=== PATIENT | female | born 1960 | race Caucasian/White ===

== ENCOUNTER → 2016-05-09 | Outpatient (CLI) | payer OTHER ==
--- NOTE | 2016-05-10 10:15 | MAM ---
EXAM DESCRIPTION: MAMMO BREAST SCREENING BILATERAL CAD, images were reviewed with CAD technology, R2 computer-aided detection. CLINICAL HISTORY: [facility]. COMPARISON: 2011. FINDINGS: Routine views are obtained. Glandular tissue is heterogeneously dense and slightly nodular in contour. No dominant mass, architectural distortion or clustered microcalcification. IMPRESSION: Benign exam. BIRAD CATEGORY: 2 BENIGN RECOMMENDATIONS: FOLLOW-UP: Routine screening mammogram in one year. According to the [employer], yearly mammograms are recommended starting at age 40 and continuing as long as a woman is in good health. Any breast change noted on a breast self-exam should be reported promptly to the patient's healthcare provider. Breast MRI is recommended for women with an approximately 20-25% or greater lifetime risk of breast cancer, including women with a strong family history of breast or ovarian cancer and women who have been treated for Hodgkin's disease. Electronically signed by: Pamela Willson 05/10/2016 10:13
== END | disposition home or self-care (01) ==
LOC: MAMMO 14:50
PROVIDERS: ATTEND Family Medicine
DX: Z12.31 Encounter for screening mammogram for malignant neoplasm of breast (principal)

== ENCOUNTER → 2016-08-08 | Outpatient (CLI) | payer SELFPAY | END | disposition home or self-care (01) | LOC: YCFC.O 15:42 | PROVIDERS: ATTEND Nurse Practitioner Family | DX: I10 Essential (primary) hypertension (principal); E11.9 Type 2 diabetes mellitus without complications ==

== ENCOUNTER → 2016-09-29 | Outpatient (CLI) | payer SELFPAY ==
--- NOTE | 2016-09-30 13:40 | RAD ---
Right shoulder two views INDICATION: Shoulder pain initial encounter IMPRESSION: Bones are osteopenic. No fracture or focal destructive lesion. Mild AC joint osteoarthrosis. No dislocation. No advanced arthrosis. Electronically signed by: Amor Cee MD 09/30/2016 1:38 PM CDT
== END | disposition home or self-care (01) ==
LOC: RAD 15:56
PROVIDERS: ATTEND Nurse Practitioner Family
DX: M25.519 Pain in unspecified shoulder (principal)

== ENCOUNTER → 2016-10-21 | Outpatient (CLI) | payer SELFPAY | END | disposition home or self-care (01) | LOC: YCFC.O 07:02 | PROVIDERS: ATTEND Nurse Practitioner Family | DX: E11.9 Type 2 diabetes mellitus without complications (principal); I10 Essential (primary) hypertension ==

== ENCOUNTER 2017-01-14 17:07 | Inpatient (IN) | payer SELFPAY ==
[2017-01-14] MEDS ORDERED: SODIUM CHLORIDE 0.9% 1000ML 1,000 ML IVS ONE (17:27)
--- NOTE | 2017-01-14 17:49 | RAD ---
EXAM DESCRIPTION: Chest,2 Views CLINICAL HISTORY: 56 years, Female, fatigue sob COMPARISON: Chest x-ray dated 09/03/2013 FINDINGS: PA and lateral chest radiographs were performed. The lungs are well expanded with airspace opacity in the RIGHT lower lobe posteriorly. The lungs are otherwise clear. The costophrenic sulci are sharp. The cardiac silhouette, hilar regions, trachea, soft tissues and bony structures are unremarkable aside from mild degenerative changes. The RIGHT lower lobe airspace opacity is new since the prior study. IMPRESSION: RIGHT lower lobe pneumonia. Electronically signed by: Nathalia Grullon MD 01/14/2017 5:48 PM CDT
[2017-01-14] MEDS ORDERED: AZITHROMYCIN IV 500 MG in SODIUM CHLORIDE 0.9% 250ML 250 ML IVPB ONE (18:16)
[2017-01-14] MEDS ORDERED: cefTRIAXone SODIUM 1 GM VIAL IM ONE (18:16)
[2017-01-14] MEDS ORDERED: IPRATROPIUM/ALBUTEROL 3 ML VIAL NEB ONE (18:17)
[2017-01-14] MEDS ORDERED: MAGNESIUM SULFATE PREMIX 2GM 2 GM in PREMIX BAG 1 BAG IVPB ONE (18:18)
[2017-01-14] MEDS ORDERED: MAGNESIUM SULFATE PREMIX 2GM 50 ML IVPB ONE (18:27)
--- NOTE | 2017-01-14 18:34 | ED.PDOC ---
History of Present Illness - General Chief Complaint: GI Problem Stated Complaint: vomiting, nausea Time Seen by Provider: 01/14/17 17:08 Source: patient Exam Limitations: no limitations - History of Present Illness Initial Comments: the patient a 56-year-old female presenting to the emergency room secondary to progressive weakness actually over the last several weeks. She is reported significant weight loss over the last couple of months. She does smoke. She does not know she's had any fevers. She is getting weak and shaky but her blood sugars have been actually moderately elevated. She started to get some nausea and did have one episode of vomiting today. She's had poor oral intake over the last couple of days. No syncope. Questionable near syncope. she was seen here last year and was told to stop the thiazide diuretic. She is still on the thiazide diuretic. Timing/Duration: unsure Severity: severe Improving Factors: nothing Worsening Factors: nothing Associated Symptoms: cough, loss of appetite, malaise, nausea/vomiting, shortness of breath, weakness Allergies/Adverse Reactions: Allergies NO KNOWN ALLERGY Allergy (Verified 01/14/17 17:26) Home Medications: Ambulatory Orders Insulin Detemir [Levemir Flexpen] 30 units SUBCU DAILY 08/11/15 Fluoxetine HCl [PROzac] 20 mg PO DAILY 01/14/17 Lisinopril 20 mg PO DAILY 01/14/17 Novalog 01/14/17 OXcarbazepine [Trileptal] 600 mg PO BID 01/14/17 Trazodone HCl 50 mg PO BEDTIME 01/14/17 Review of Systems - Review of Systems Constitutional: States: malaise, weakness EENTM: States: nose congestion Respiratory: States: cough, short of breath, wheezing Cardiology: States: no symptoms reported Gastrointestinal/Abdominal: States: nausea, vomiting Genitourinary: States: no symptoms reported Musculoskeletal: States: muscle stiffness Skin: States: no symptoms reported Neurological: States: see HPI - chronic problems, weakness - eneralized Endocrine: States: unexplained weight loss Hematologic/Lymphatic: States: no symptoms reported All other Systems: No Change from Baseline Past Medical History (General) - Patient Medical History Hx Seizures: No Hx Stroke: No Hx Asthma: No Hx of COPD: No Hx Cardiac Disorders: No Hx Congestive Heart Failure: No Hx Pacemaker: No Hx Hypertension: Yes Hx Diabetes: Yes Hx MRSA: No Surgical History: Hysterectomy, other - Vaccination History Hx Tetanus, Diphtheria Vaccination: No Hx Influenza Vaccination: No Hx Pneumococcal Vaccination: Yes - Social History Hx Tobacco Use: Yes Hx Alcohol Use: No Hx Substance Use: Yes Hx Depression: Yes Hx Physical Abuse: No Hx Emotional Abuse: No - Female History Patient : No Family Medical History - Family History Mother Family History: Unknown Living Status: Unknown Physical Exam - Physical Exam General Appearance: Alert, Unkempt Eye Exam: bilateral normal Ears, Nose, Throat: hearing grossly normal, normal ENT inspection - mucous membranes are mildly dry Neck: non-tender, full range of motion Respiratory: chest non-tender, other - ild bibasilar rales are heard. She does have decreased breath sounds bilaterally. No obvious respiratory distress. 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 She does have a very significant leukocytosis associated with this. She is probably borderline septic but vital signs are holding at this point. The patient is being started on IV fluids for the sepsis and infection as well as the acute renal failure. The thiazide diuretic needs to be discontinued. She does have significant hyponatremia likely from renal dysfunction as well as pulmonary dysfunction. She is not nauseated currently so no current medications are being given. She does have a low magnesium level and this will be supplemented as well. Blood cultures are being performed. A sputum culture needs to be collected. Lactic acid is still pending at this time. Her blood sugars will require monitoring. The patient may yet need physical therapy for generalized weakness. She has had significant weight loss over the last month or so and this may be the source. She does need to be followed from a nutritional standpoint as well. I' m going to place the patient on low-flow supplemental oxygen to reduce metabolic strain. - Results/Orders Results/Orders: Laboratory Tests 01/14/17 01/14/17 01/14/17 17:40 17:40 17:40 WBC 31.3 H* RBC 4.32 Hgb 12.9 Hct 38.2 MCV 88.6 MCH 29.8 MCHC 33.7 RDW 13.4 Plt Count 220 MPV 8.9 Absolute Neuts (auto) Not Reportable Absolute Lymphs (auto) Not Reportable Absolute Monos (auto) Not Reportable Absolute Eos (auto) Not Reportable Neutrophils % Not Reportable Neutrophils % (Manual) 67.0 Lymphocytes % Not Reportable Lymphocytes % (Manual) 2.0 Monocytes % Not Reportable Monocytes % (Manual) 4.0 Eosinophils % Not Reportable Basophils % Not Reportable Band Neutrophils 27.0 Platelet Estimate Normal Normal RBC Morphology Normal rbc morph Sodium 126 L Potassium 3.9 Chloride 88 L Carbon Dioxide 25 Anion Gap 16.9 BUN 36 H Creatinine 2.00 H BUN/Creatinine Ratio 18.0 Random Glucose 279 H Hemoglobin A1c 7.2 H Serum Osmolality 271.7 L Calcium 8.8 Magnesium 1.5 L Total Bilirubin 0.6 AST 20 ALT 19 Alkaline Phosphatase 110 Creatine Kinase 33 CK-MB (CK-2) 1.5 CK-MB (CK-2) % Not Reportable Troponin I < 0.02 B-Natriuretic Peptide 145.0 H Serum Total Protein 7.3 Albumin 3.4 Globulin 3.9 H Albumin/Globulin Ratio 0.9 L Amylase 50 Lipase 19 L chest x-ray shows a significant right lower lobe consolidation consistent with pneumonia Departure - Departure Clinical Impression: Hypomagnesemia, Hyponatremia Pneumonia involving right lung Qualifiers: Pneumonia type: due to unspecified organism Lung location: lower lobe of lung Qualified Code(s): J18.1 - Lobar pneumonia, unspecified organism Acute renal failure Qualifiers: Acute renal failure type: unspecified Qualified Code(s): N17.9 - Acute kidney failure, unspecified Disposition: Admit Patient Home Medications: Ambulatory Orders Insulin Detemir [Levemir Flexpen] 30 units SUBCU DAILY 08/11/15 Fluoxetine HCl [PROzac] 20 mg PO DAILY 01/14/17 Lisinopril 20 mg PO DAILY 01/14/17 Novalog 01/14/17 OXcarbazepine [Trileptal] 600 mg PO BID 01/14/17 Trazodone HCl 50 mg PO BEDTIME 01/14/17 Decision To Admit - Decistion To Admit Decision to Admit Reason: Medical Nature Decision to Admit Date: 01/14/17 Decision to Admit Time: 18:39
[2017-01-14] MEDS ORDERED: DEXTROSE 50% 25 GM/50 ML SYG IV PRN (18:46)
[2017-01-14] MEDS ORDERED: ALBUTEROL SULFATE 2.5 MG/3 ML VIAL NEB PRN (18:46)
[2017-01-14] MEDS ORDERED: ONDANSETRON INJ 4 MG/2 ML VIAL IV PRN (18:46)
[2017-01-14] MEDS ORDERED: GLUCAGON INJ 1 MG VIAL SUBCU PRN (18:46)
[2017-01-14] MEDS ORDERED: AZITHROMYCIN IV 500 MG VIAL IVPB ONE (19:30)
[2017-01-14] MEDS ORDERED: SODIUM CHLORIDE 0.9% 250ML 250 ML ONE (19:30)
--- NOTE | 2017-01-14 19:39 | HP ---
SUPERVISING PHYSICIAN: Florencio Farley MD CHIEF COMPLAINT: Nausea and vomiting, shortness of breath. HISTORY OF PRESENT ILLNESS: Ms. Sinclair is a 56 year-old female who presented to the Emergency Department secondary to ongoing weakness for the last 4 weeks. She noted she has had some weight loss over the last couple of months, does not know exactly the total amount. She does have a lengthy history of smoking in high school, smokes approximately one-half pack a day. She noted she had been having some shortness of breath with exertion and just feeling tired and weak. In the Emergency Department laboratory studies showed she a leukocytosis with a white count of 31,300 with differential showing a left shift with a significant increase in bands. She denied any fever at home and admission to the Emergency Department running a low grade temperature of 99.7. A chest x-ray was completed and per radiology interpretation 3-view chest showed she had a right lower lobe pneumonia. She had also noted she had been having some nausea and vomiting but not significant diarrhea and attributed this mainly to a decreased appetite. She also has a history of diabetes mellitus insulin dependent which appears to be fairly well controlled as her hemoglobin A1C was 7.2. Her chemistries showed she was also hyponatremic with a sodium of 126. Lactic acid 2.1, she showed significant renal dysfunction with a BUN of 36, creatinine 2.0. Amylase and lipase were both normal. BNP was slightly elevated at 145. Cardiac enzymes were normal. Given the significant leukocytosis and findings on x-ray of right lower lobe pneumonia community acquired, the patient was started on antibiotics with Rocephin and azithromycin after blood cultures were completed. Fluid was initiated for early sepsis even though her lactic acid was normal and requested admission by Dr. Farley, Emergency Room physician for patient to be admitted to the hospital for continuation of treatment of community acquired pneumonia. The patient was admitted to the medical/surgical floor in stable condition. PAST MEDICAL HISTORY: 1. Insulin-dependent diabetes mellitus. 2. Hypertension. 3. Hyperlipidemia. 4. Osteoarthritis. 5. Depression, bipolar, schizophrenia. PAST SURGICAL HISTORY: 1. Hysterectomy. CURRENT MEDICATIONS: 1. NovoLog sliding scale. 2. Levemir 30 units subcu AM. 3. Prozac 20 mg qAM. 4. Trileptal 200 mg twice a day. 5. Trazodone 80 mg at bedtime. 6. Lisinopril 20 mg daily. ALLERGIES: NO KNOWN DRUG ALLERGIES. PRIMARY CARE PROVIDER: [facility]. MENTAL HEALTH PROVIDER: Through [facility]. FAMILY HISTORY: Positive for cancer with her grandmother having pancreatic cancer, she had multiple family members with hypertension, diabetes and 4 of a heart attack. SOCIAL HISTORY: The patient lives in [place] by herself. She has a lengthy history of tobacco abuse since high school, currently smokes a pack a day. She previously worked at [employer] but has been laid off since February of last year. She denies any illicit drug or alcohol usage. REVIEW OF SYSTEMS: CONSTITUTIONAL: Notes she has had general malaise and weakness as noted in the history of present illness with some unintentional weight loss. HEENT: Noted some nasal congestion, no sore throat, headaches or earaches. RESPIRATORY: Cough, shortness of breath with exertion with wheezing as noted in history of present illness. She also notes that in the last several years, at some point an x-ray showed she had a nodule in her right lung but this was supposedly followed up and she was told not to worry about it but again, she has had some unexplained weight loss. HEART: No reported chest pains, syncopal episodes or palpitations. ABDOMEN: Nausea and vomiting, no diarrhea. : Denies any dysuria, hematuria, or any urinary symptoms. NEUROLOGICAL: Denies any motor weakness, just generalized weakness which is a chronic problem. No syncopal episodes or mental changes. ENDOCRINE: She has insulin-dependent diabetes mellitus with pretty well controlled but has had some unexplained weight loss. PHYSICAL EXAMINATION: VITAL SIGNS: Temperature 99.7, pulse 97, blood pressure 138/81, respirations 20 at rest with saturation of 98% on room air. Admission weight 54.4 kg. GENERAL: Patient appears ill, frail and thin, appears to be dehydrated but in no acute distress. She is alert and very unkept. HEENT: Tympanic membranes were partially obscured by cerumen. Oropharynx was pink with mucous membranes being dry but no lesions. NECK: Non-tender, full range of motion. CHEST: There is notable bibasilar rales, more prominent on the right posterior aspect compared to the left with decreased breath sounds on both sides. No wheezing. CARDIOVASCULAR: Regular rate and rhythm without appreciable murmurs, rubs, or gallops. ABDOMEN: Soft, non-tender, with positive bowel sounds. EXTREMITIES: No cyanosis, clubbing, or edema. NEUROLOGIC: Cranial nerves II through XII are grossly intact. Facial features were symmetrical. Extraocular movement were within normal limits. There was no notable nystagmus. She was oriented x3 and alert. LABORATORY: CBC shows a leukocytosis of 31,300, hemoglobin 12.9, hematocrit 30.3 with platelet count of 220,000. Differential does show a left shift with increased bands at 27%. Chemistries show a hyponatremia of 126, potassium 3.9, carbon dioxide 125, anion gap normal at 16.9, BUN 36.9. Glucose 279, lactic acid 2.1, magnesium low at 1.5, calcium normal at 8.8. Liver functions showed to be within normal limits.Troponin less than 0.02. BNP only slightly elevated at 45. Amylase and lipase normal, TSH normal. Urinalysis showed 100 glucose with small amount of blood. Microcoric revealed 1 to 3 RBC, 10 to 20 WBC, 5 to 10 epithelial with 1+ bacteria. MICROBIOLOGY: Cultures pending. Gram stain on sputum shows a few epithelials with moderate RBCs with gram positive cocci, gram negative coccobacilli. Sputum cultures pending. She had a flu A and B swab by PCR which were both negative for A and B. She has 2 sets of blood cultures pending. RADIOLOGY: 2-view chest x-ray per radiology interpretation shows a right lower lobe pneumonia. ASSESSMENT: 1. Acute exacerbation of chronic obstructive pulmonary disease with a right lower lobe pneumonia, community acquired with a concern for early sepsis given the leukocytosis. 2. Significant leukocytosis likely secondary to #1. 3. Electrolyte imbalance with a moderate hyponatremia, possibly secondary to underlying pneumonia with some exacerbation by nausea and vomiting, also hypomagnesemia. 4. Community acquired pneumonia as noted on radiographic studies showing a right lower lobe pneumonia with patient having a history of significant tobacco abuse and remote history of a right lung nodule. Will need close clinical followup given the degree of weight loss that she reports and decreased appetite. 5. Nausea and vomiting probably secondary to underlying pneumonia and poor appetite. 6. Insulin-dependent diabetes mellitus fairly well controlled with a hemoglobin A1c of 7.2. 7. History of hypertension. 8. History of hyperlipidemia. 9. Significant history of tobacco abuse encouraged to stop smoking. 10. Depression, bipolar disorder with a component of schizophrenia currently followed by [facility]. 11. Renal insufficiency possibly secondary to prerenal azotemia from dehydration. PLAN: The patient will be admitted to the hospital and initiated on aggressive bronchial hygiene therapy with chest percussions, bronchial dilators with Duoneb treatments q.i.d. She will be initiated on antibiotic therapy with Rocephin and azithromycin which were initiated in the Emergency Room after blood cultures were completed. Will continue to treat aggressively and monitor patient closely. Anticipate length of stay to be 2 to [address] possible [address] of the chest to further investigate the reported lung nodules, however, she does have decreased renal function and will work on improving this , hopefully be able to use some contrast. Will start her on some IV fluids with normal saline with 20 of potassium in efforts to correct the hyponatremia and dehydration. She was given some magnesium in the Emergency Department. Will continue to monitor this closely in the labs and replace as needed. Will plan to repeat laboratory studies an x-ray in the morning and until clinically stable continue to monitor and treat appropriately. Once stable she will need followup in the outpatient setting with [facility]. [id number] [facility]
[2017-01-14] MEDS: IPRATROPIUM/ALBUTEROL 3 ML VIAL INH SCH (20:10)
[2017-01-14] MEDS: IV SET AND CAP CHANGE INJ INJ SCH (20:31)
[2017-01-14] MEDS: SODIUM CHLORIDE 0.9% (FLUSH) 10 ML SYG IV PRN (20:50)
[2017-01-14] MEDS: INSULIN LISPRO 100 UNITS/ML PEN SUBCU SCH (21:29)
[2017-01-14] MEDS: KCL 20 MEQ/NS 1,000 ML IVS PRN (21:40)
--- NOTE | 2017-01-14 21:56 | PCM.CORE ---
Physician DVT/VTE - Nurse DVT Assessment & Total Each Risk Factor Represents 3 Points: Medical PT with Hx of ND, CHF, Severe infection/sepsis Each Risk Factor Represents 1 Point: Age 41-60, Hx of smoking past year Each Risk Factor is 1 Point: Serious Lung disease (pnemonia <1month, COPD, emphysema,etc) DVT Assessment Score: 6 - 5 or more Very High Risk Treatments: Early Ambulation *, Sequential Compression Device Pharmacological: Enoxaparin 40mg SQ Daily
[2017-01-14] MEDS ORDERED: ENOXAPARIN SODIUM 40 MG/0.4 ML SYG SUBCU SCH (22:00)
[2017-01-14] MEDS: OXcarbazepine 300 MG TAB PO SCH (22:06)
[2017-01-14] MEDS: traZODone HCL 50 MG TAB PO SCH (22:06)
[2017-01-15] MEDS: KCL 20 MEQ/NS 1,000 ML IVS PRN ×2 (05:14→16:55)
--- NOTE | 2017-01-15 06:14 | RAD ---
Procedure: XR CHEST 2 VIEWS Exam Date: 01/15/2017 Ordering Provider: Johnson Zaldivar NP Clinical Indication: Pneumonia Comparison: 01/14/2017 Findings: Cardiomediastinal silhouette is stable. Focal lung consolidation: Stable right lower lobe opacities. No new infiltrates. Pleural effusion: None Pneumothorax: None Acute bony or soft tissue abnormality: None Impression: 1. Right lower lobe pneumonia. Electronically signed by: Nas Briggs MD 01/15/2017 6:13 AM CDT
[2017-01-15] MEDS: SODIUM CHLORIDE 0.9% (FLUSH) 10 ML SYG IV PRN (06:27)
[2017-01-15] MEDS: PANTOPRAZOLE SODIUM IV 40 MG VIAL IV SCH (06:27)
[2017-01-15] MEDS: INSULIN LISPRO 100 UNITS/ML PEN SUBCU SCH ×4 (07:24→21:21)
[2017-01-15] MEDS ORDERED: OXcarbazepine 300 MG TAB PO ONE (08:00)
[2017-01-15] MEDS ORDERED: SODIUM CHLORIDE 0.9% 250ML 250 ML ONE (08:08)
[2017-01-15] MEDS ORDERED: AZITHROMYCIN IV 500 MG VIAL IVPB ONE (08:08)
[2017-01-15] MEDS ORDERED: IPRATROPIUM/ALBUTEROL 3 ML VIAL NEB ONE (08:20)
[2017-01-15] MEDS: IPRATROPIUM/ALBUTEROL 3 ML VIAL INH SCH (08:50)
[2017-01-15] MEDS: AZITHROMYCIN IV 500 MG in SODIUM CHLORIDE 0.9% 250ML 250 ML IVPB SCH (08:54)
[2017-01-15] MEDS: OXcarbazepine 300 MG TAB PO SCH ×2 (08:55→21:21)
[2017-01-15] MEDS: LISINOPRIL 10 MG TAB PO SCH (08:55)
[2017-01-15] MEDS: FLUoxetine HCL 20 MG CAP PO SCH (08:56)
[2017-01-15] MEDS: INSULIN DETEMIR 100 UNITS/ML PEN SUBCU SCH ×2 (10:31→11:48)
[2017-01-15] MEDS ORDERED: SODIUM CHL 0.9% 50ML MIN-BAG+ 50 ML IVPB ONE (10:59)
[2017-01-15] MEDS ORDERED: cefTRIAXone SODIUM 1 GM VIAL ONE (11:00)
[2017-01-15] MEDS: cefTRIAXone SODIUM 1 GM in SODIUM CHL 0.9% 50ML MIN-BAG+ 50 ML IVPB SCH (11:52)
[2017-01-15] MEDS ORDERED: INSULIN LISPRO 100 UNITS/ML PEN SUBCU ONE ×2 (12:00→17:26)
[2017-01-15] MEDS: IPRATROPIUM/ALBUTEROL 3 ML VIAL NEB SCH ×3 (13:04→19:56)
[2017-01-15] MEDS: ACETAMINOPHEN 325 MG TAB PO PRN (14:38)
--- NOTE | 2017-01-15 21:01 | PN ---
DATE: 01/15/17 SUPERVISING PHYSICIAN: Florencio Farley M.D. SUBJECTIVE: The patient is resting in bed. She appears to feel a little better this morning. She remains afebrile. She has not had any more additional nausea or vomiting. She is reporting no chest pains or any abdominal pains. OBJECTIVE: VITAL SIGNS: Temperature 98.3, pulse 78, blood pressure 110/56, respirations 18, satting 96% on room air. I's and O's show a positive balance. I do not think it is very accurate because she has had voiding and unmeasured multiple voids as she has had 2746 in and only 200 out. CHEST: Lungs have good aeration except for diminished sounds on the right and notable rhonchi continues on the right posterior aspect. No wheezing. HEART: Regular rate and rhythm without any murmurs, gallops, or rubs noted. ABDOMEN: Soft, non-tender, positive bowel sounds. EXTREMITIES: No clubbing, cyanosis or edema. NEUROLOGIC : She is alert and oriented times three. LABORATORY: She continues with leukocytosis although it has improved, it is down to 23,300 with hemoglobin 10.5, hematocrit 31.6. Differential continues to show a left shift and is now decreased just 2%. Chemistries show improvement in her sodium at 132 from admission of 126, potassium is normal at 4.0, BUN 38 with creatinine showing improvement after IV fluids and is down to 1.51 compared to 2.0 at time of admission. Magnesium repeated today was 2.3, calcium 8.1. Blood sugars this morning were down in the 50s and after orange juice was up to 86, however after breakfast prior to lunch blood sugar was 358. MICROBIOLOGY: Sputum culture shows normal cecy at 24 hours. Urine culture showed no growth at 24 hours. Blood cultures remain negative at 24 hours. RADIOLOGY: Chest x-ray shows a right lower lobe pneumonia. ASSESSMENT: 1. Acute exacerbation of chronic obstructive pulmonary disease with a right lower lobe pneumonia community acquired with concerns initially for early sepsis given the degree of leukocytosis, although the patient is showing good response with parenteral antibiotics with decrease in leukocytosis. 2. Leukocytosis secondary to #1 improved with IV antibiotic therapy. 3. Electrolyte imbalance with moderate hyponatremia possibly secondary to underlying pneumonia with some exacerbation by the nausea and vomiting and hypomagnesemia showing improvement in both sodium and magnesium levels with replacement. 4. Community acquired pneumonia as noted on radiographic studies showing right lower lobe involvement with the patient having a significant history of tobacco abuse at a very young age with a remote history of reported right lung nodules. Will need close clinical followup given the degree of weight loss that she reports and her decreased appetite. 5. Nausea and vomiting likely secondary to underlying pneumonia and poor appetite showing improvement with fluids and initiation of treatment. 6. Insulin-dependent diabetes mellitus fairly well controlled with hemoglobin A1c of 7.2 on admission. 7. History of hypertension. 8. History of hypomagnesemia. 9. Significant history of tobacco abuse encouraged to stop smoking. 10. Depression and bipolar disorder with a component of schizophrenia followed by [facility]. 11. Renal insufficiency secondary to prerenal azotemia from dehydration showing improvement with IV fluids. PLAN: Will continue with the plan of care at this point with aggressive bronchial hygiene, chest percussions and antibiotic therapy to include Rocephin and Azithromycin. Will continue with IV fluids to help with dehydration and resolve the hyponatremia. Once the patient is adequately taking p.o. fluids and showing good improvement, will saline lock her. Her magnesium has been normalized with replacement. Plan to repeat laboratory studies in the morning as well as repeat x-ray until stable and telemetry improves. Will continue to monitor and treat appropriately up until discharge. Once stable, she can be discharged to outpatient treatment and be followed-up with [facility] for resolution of the radiographic studies and further evaluation of the chest films, and possible need for close followup with a CT of the chest given the patient's history of weight loss. #[id number] [facility]
[2017-01-15] MEDS: ENOXAPARIN SODIUM 40 MG/0.4 ML SYG SUBCU SCH (21:20)
[2017-01-15] MEDS: traZODone HCL 50 MG TAB PO SCH (21:21)
[2017-01-16] MEDS: KCL 20 MEQ/NS 1,000 ML IVS PRN (01:31)
[2017-01-16] MEDS: PANTOPRAZOLE SODIUM IV 40 MG VIAL IV SCH (06:25)
[2017-01-16] MEDS: SODIUM CHLORIDE 0.9% (FLUSH) 10 ML SYG IV PRN (06:25)
[2017-01-16] MEDS ORDERED: INSULIN LISPRO 100 UNITS/ML PEN SUBCU SCH (07:00)
[2017-01-16] MEDS ORDERED: SODIUM CHLORIDE 0.9% 250ML 0 ML ONE (07:55)
[2017-01-16] MEDS ORDERED: SODIUM CHL 0.9% 50ML MIN-BAG+ 50 ML IVPB ONE (07:56)
[2017-01-16] MEDS ORDERED: cefTRIAXone SODIUM 1 GM VIAL ONE (07:56)
[2017-01-16] MEDS ORDERED: AZITHROMYCIN IV 500 MG VIAL IVPB ONE ×2 (07:56→08:16)
[2017-01-16] MEDS: AZITHROMYCIN IV 500 MG in SODIUM CHLORIDE 0.9% 250ML 250 ML IVPB SCH (08:14)
[2017-01-16] MEDS: IPRATROPIUM/ALBUTEROL 3 ML VIAL NEB SCH ×4 (08:15→20:32)
[2017-01-16] MEDS ORDERED: SODIUM CHLORIDE 0.9% 250ML 250 ML ONE (08:16)
[2017-01-16] MEDS: INSULIN LISPRO 100 UNITS/ML PEN SUBCU SCH ×4 (08:18→21:23)
[2017-01-16] MEDS: INSULIN DETEMIR 100 UNITS/ML PEN SUBCU SCH (08:55)
[2017-01-16] MEDS: LISINOPRIL 10 MG TAB PO SCH (09:00)
[2017-01-16] MEDS: FLUoxetine HCL 20 MG CAP PO SCH (09:00)
[2017-01-16] MEDS: OXcarbazepine 300 MG TAB PO SCH ×2 (09:02→21:19)
[2017-01-16] MEDS: cefTRIAXone SODIUM 1 GM in SODIUM CHL 0.9% 50ML MIN-BAG+ 50 ML IVPB SCH (10:41)
--- NOTE | 2017-01-16 14:03 | PN ---
SUPERVISING PHYSICIAN: Bart Jules MD DATE: 01/16/17 SUBJECTIVE: The patient says she feels better today. She has been afebrile. She is no longer having nausea or vomiting. She does have some continued shortness of breath with exertion, but was able to actually ambulate through the halls to the front of the hospital this morning. OBJECTIVE: VITAL SIGNS: Afebrile. Temperature 98.9. Pulse 90. Blood pressure 165/75. O2 saturation 97% on room air. I&Os show positive balance of 2546 with 2746 in, 200 out. However, she has had multiple voids that have not been measured. The patient has been saline locked. Weight 54.4 kg. CHEST: She continues to have decreased breath sounds on the right compared to the left with notable rhonchi heard on the posterior aspect and right lower base. Lung sounds on the left are fairly clear. HEART: Regular rate and rhythm. ABDOMEN: Soft, nontender. Positive bowel sounds. EXTREMITIES: No cyanosis, clubbing or edema. NEUROLOGIC: Alert and oriented times three. LABORATORY: White count today is normalized to 10.4, hemoglobin 9.4, hematocrit 28.0, platelet count 64,000, differential does show a left shift. Chemistries show normal electrolytes with potassium 3.8, BUN 33, creatinine 1.3 , glucose ranging from 67 to 236, calcium 8.4. MICROBIOLOGY: Sputum culture at 48 hours showed normal cecy. Urine culture shows no growth at 48 hours. Blood cultures remain at 24 hours. RADIOLOGY: No additional radiographic studies were completed this morning. We will plan to repeat one in the morning. ASSESSMENT: 1. Acute exacerbation of chronic obstructive pulmonary disease with a right lower lobe pneumonia, community acquired, with concerns on admission of early sepsis with a degree of leukocytosis although the patient showed good response to parenteral antibiotic and has now normalized her white count. 2. Leukocytosis secondary to #1, now normalized after aggressive IV antibiotic therapy. 3. Electrolyte imbalance with a moderate hyponatremia, possibly secondary to underlying pneumonia and some exacerbation from nausea and vomiting along with hypomagnesemia which has now normalized with IV replacement. 4. Community acquired pneumonia as noted on radiographic studies showing right lower lobe involvement with the patient having a significant tobacco abuse history since a young age with remote history of reported right lung nodules. She will need close clinical followup once complete resolution of the pneumonia radiographically to ensure there are no additional suspicious findings given that she has had a degree of weight loss as well as reported decreased appetite. 5. Nausea and vomiting on admission secondary to pneumonia and poor appetite, showing improvement and initiation of treatment. 6. Insulin dependent diabetes mellitus, fairly well controlled with hemoglobin A1c of 7.2 on admission. 7. History of hypertension. 8. Hypomagnesemia, resolved with IV replacement. 9. Significant history of tobacco abuse, encouraged to stop smoking. 10. Depression and bipolar disorder with a component of schizophrenia, followed by [facility]. 11. Renal insufficiency secondary to a prerenal azotemia from dehydration, showing improvement with IV fluids. PLAN: The patient will benefit from an additional 24 hours of aggressive pulmonary hygiene and ongoing parenteral antibiotics to include Rocephin and azithromycin. She will be saline locked today as she has showing good improvement with IV therapy and encouraged p.o. fluids. We will encourage her to ambulate and increase activity as possible. We will continue with chest physiotherapy. She is again encouraged to stop smoking. We will anticipate discharging tomorrow once she is found to be clinically stable after repeat chest x-ray in the morning. She will need close clinical followup once discharged with [facility] and to followup for the previously noted lung nodules on the right with possible need for CT at some point in the near future once she has good resolution of the pneumonia. Until then, we will continue to monitor the patient closely and treat appropriately. #[id number] [facility]
[2017-01-16] MEDS ORDERED: NICOTINE PATCH 14 MG TD SCH (18:30)
[2017-01-16] MEDS: traZODone HCL 50 MG TAB PO SCH (21:19)
[2017-01-16] MEDS: SODIUM CHLORIDE 0.9% (FLUSH) 10 ML SYG IV SCH (21:19)
[2017-01-16] MEDS: ENOXAPARIN SODIUM 40 MG/0.4 ML SYG SUBCU SCH (21:20)
[2017-01-16] MEDS: ACETAMINOPHEN 325 MG TAB PO PRN (23:30)
[2017-01-17] MEDS ORDERED: PANTOPRAZOLE SODIUM TAB 40 MG PO ONE (05:18)
[2017-01-17] MEDS: PANTOPRAZOLE SODIUM TAB 40 MG PO SCH (06:32)
--- NOTE | 2017-01-17 06:49 | RAD ---
EXAM DESCRIPTION: Chest,2 Views CLINICAL HISTORY: pneumonia COMPARISON: 01/15/2017 FINDINGS: Frontal and lateral views of the chest. The cardiomediastinal silhouette has normal size and contour. Right lower lobe consolidation is not significantly changed. No pneumothorax. Leads overlie the chest. No displaced rib fractures identified. Upper abdominal soft tissues are unremarkable. Minimal degenerative change of the spine. IMPRESSION: 1. Unchanged right lower lobe pneumonia. Electronically signed by: Devan Mcgee 01/17/2017 6:47 AM CDT
[2017-01-17] MEDS: INSULIN LISPRO 100 UNITS/ML PEN SUBCU SCH ×4 (07:00→20:56)
[2017-01-17] MEDS ORDERED: AZITHROMYCIN 250 MG TAB PO ONE (08:00)
[2017-01-17] MEDS: IPRATROPIUM/ALBUTEROL 3 ML VIAL NEB SCH ×4 (08:52→20:39)
[2017-01-17] MEDS ORDERED: SODIUM CHL 0.9% 50ML MIN-BAG+ 50 ML IVPB ONE (09:00)
[2017-01-17] MEDS ORDERED: cefTRIAXone SODIUM 1 GM VIAL ONE (09:01)
[2017-01-17] MEDS: LISINOPRIL 10 MG TAB PO SCH (09:04)
[2017-01-17] MEDS: FLUoxetine HCL 20 MG CAP PO SCH (09:04)
[2017-01-17] MEDS: OXcarbazepine 300 MG TAB PO SCH ×2 (09:04→20:59)
[2017-01-17] MEDS: SODIUM CHLORIDE 0.9% (FLUSH) 10 ML SYG IV SCH ×2 (09:05→21:04)
[2017-01-17] MEDS: INSULIN DETEMIR 100 UNITS/ML PEN SUBCU SCH (09:05)
[2017-01-17] MEDS: cefTRIAXone SODIUM 1 GM in SODIUM CHL 0.9% 50ML MIN-BAG+ 50 ML IVPB SCH (11:26)
[2017-01-17] MEDS ORDERED: MAGNESIUM HYDROXIDE 30 ML UD PO ONE (12:37)
[2017-01-17] MEDS ORDERED: MAGNESIUM HYDROXIDE 30 ML UD ONE (13:57)
--- NOTE | 2017-01-17 14:32 | PN ---
DATE: 01/17/17 SUPERVISING PHYSICIAN: Bart Jules MD SUBJECTIVE: The patient is walking in the hallway. There is no notable dyspnea with ambulation in the room. She has no complaints of shortness of breath, nausea or vomiting or chest pain. She does complain of cough and feels like she just can't get the phlegm up. We discussed smoking cessation at length and the pathophysiology of pneumonia. OBJECTIVE: VITAL SIGNS: T-max 24 hours is 99.9. Pulse rate 86, blood pressure 167/74, respiratory rate 20, 02 saturation 95% on room air. Blood sugars have run between 46 and 258. Final sputum culture shows normal cecy at 48 hours. Urine culture shows no growth after 48 hours and a preliminary blood culture showed no growth after 48 hours. Her chest x-ray per radiology interpretation shows unchanged right lower lobe pneumonia. All other labs and films have been reviewed via the EMR. ASSESSMENT: 1. Acute exacerbation of chronic obstructive pulmonary disease with a right lower lobe pneumonia, community acquired, with concerns on admission for early sepsis with a degree of leukocytosis, though the patient shown good response to parenteral antibiotic and has now normalized her white count. 2. Leukocytosis secondary to #1, now normalized.. 3. Electrolyte imbalance with moderate hyponatremia, possibly secondary to underlying pneumonia and some exacerbation from nausea and vomiting along with hypomagnesemia which has now normalized. 4. Community acquired pneumonia right lower lobe pneumonia as noted on radiograph that is unchanged. The patient has a significant tobacco abuse history as well as a remote history of right lung nodules. 5. Nausea and vomiting on admission secondary to pneumonia and poor appetite, showing improvement. 6. Insulin dependent diabetes mellitus, type 1, fairly well controlled with hemoglobin A1c of 7.2. 7. History of hypertension. 8. Hypomagnesemia now resolved. 9. Significant history of tobacco abuse, encouraged to stop smoking. 10. Depression and bipolar disorder with a component of schizophrenia, followed by [facility]. 11. Renal insufficiency secondary to a prerenal azotemia from dehydration, showing improvement. PLAN: We will continue present supportive care and aggressive pulmonary hygiene. She is very concerned about her disability being rejected twice. On discharge she may need close followup with Shantal Loco, her elementary school social worker, maybe assistance with Dr. Donohue at [facility] to assist trying to get her disability. She also has quite good control of her diabetes and she bases her sliding scale insulin on her carb intake. I will contact pharmacy to see how we can adjust her sliding scale insulin based on how she takes care of it at home as she has quite a wide range of her blood sugars. I have added Mucinex to help with thinning of her secretions as well as ordered lab for in the morning and a chest x-ray. Will continue with her azithromycin and Rocephin as she is clinically responding well. We talked extensively about smoking cessation and the pathophysiology of pneumonia and have strongly encouraged her to stop smoking. We will continue to monitor her closely and followups a needed. Dr. Jules is the collaborating physician and available for consultation #[id number] [facility]
[2017-01-17] MEDS: guaiFENesin ER TAB 600 MG TAB PO SCH (20:59)
[2017-01-17] MEDS: traZODone HCL 50 MG TAB PO SCH (20:59)
[2017-01-17] MEDS: ENOXAPARIN SODIUM 40 MG/0.4 ML SYG SUBCU SCH (20:59)
[2017-01-17] MEDS ORDERED: NICOTINE PATCH 14 MG TD SCH (21:00)
[2017-01-17] MEDS: IV SET AND CAP CHANGE INJ INJ SCH (21:04)
[2017-01-18] MEDS: PANTOPRAZOLE SODIUM TAB 40 MG PO SCH (06:15)
--- NOTE | 2017-01-18 06:58 | RAD ---
EXAM DESCRIPTION: Chest,2 Views CLINICAL HISTORY: pna COMPARISON: 01/17/2017 FINDINGS: Frontal and lateral views of the chest. The cardiomediastinal silhouette has normal size and contour. Right lower lobe consolidation is not significantly changed. No pneumothorax. Leads overlie the chest. No displaced rib fractures identified. Upper abdominal soft tissues are unremarkable. Minimal degenerative change of the spine. IMPRESSION: 1. Unchanged right lower lobe pneumonia. Electronically signed by: Devan Mcgee 01/18/2017 6:56 AM CDT
[2017-01-18] MEDS: INSULIN LISPRO 100 UNITS/ML PEN SUBCU SCH ×2 (07:25→11:52)
[2017-01-18] MEDS ORDERED: SODIUM CHL 0.9% 50ML MIN-BAG+ 50 ML IVPB ONE (08:51)
[2017-01-18] MEDS ORDERED: cefTRIAXone SODIUM 1 GM VIAL ONE (08:52)
[2017-01-18] MEDS ORDERED: INSULIN DETEMIR 100 UNITS/ML PEN SUBCU ONE ×3 (08:54→11:49)
[2017-01-18] MEDS: INSULIN DETEMIR 100 UNITS/ML PEN SUBCU SCH ×2 (09:08→09:26)
[2017-01-18] MEDS: guaiFENesin ER TAB 600 MG TAB PO SCH (09:10)
[2017-01-18] MEDS: OXcarbazepine 300 MG TAB PO SCH (09:10)
[2017-01-18] MEDS: SODIUM CHLORIDE 0.9% (FLUSH) 10 ML SYG IV SCH (09:11)
[2017-01-18] MEDS: LISINOPRIL 10 MG TAB PO SCH (09:11)
[2017-01-18] MEDS: FLUoxetine HCL 20 MG CAP PO SCH (09:11)
[2017-01-18] MEDS ORDERED: BISACODYL TAB 5 MG TAB PO ONE (09:29)
[2017-01-18] MEDS ORDERED: DOXYCYCLINE HYCLATE CAP 100 MG CAP PO SCH ×2 (09:30→17:00)
[2017-01-18] MEDS: cefTRIAXone SODIUM 1 GM in SODIUM CHL 0.9% 50ML MIN-BAG+ 50 ML IVPB SCH (10:05)
[2017-01-18 10:14] VITALS: BP 176/79; TEMP 99.2
[2017-01-18] MEDS: IPRATROPIUM/ALBUTEROL 3 ML VIAL NEB SCH ×2 (12:31→12:53)
[2017-01-18 12:57] VITALS: O2SAT 98
[2017-01-18] MEDS ORDERED: PNEUMOCOCCAL VACCINE 0.5 ML INJ IM ONE (13:29)
--- NOTE | 2017-01-18 14:00 | DS ---
SUPERVISING PHYSICIAN: Bart Jules MD DISCHARGE DIAGNOSIS: 1. Acute exacerbation of chronic obstructive pulmonary disease with a right lower lobe pneumonia, community acquired, with concerns on admission for early sepsis with a degree of leukocytosis, though the patient shown good response to parenteral antibiotic and has now normalized her white count. 2. Leukocytosis secondary to #1, now normalized.. 3. Electrolyte imbalance with moderate hyponatremia, possibly secondary to underlying pneumonia and some exacerbation from nausea and vomiting along with hypomagnesemia which has now normalized. 4. Community acquired pneumonia right lower lobe pneumonia as noted on radiograph that is unchanged. The patient has a significant tobacco abuse history as well as a remote history of right lung nodules. 5. Nausea and vomiting on admission secondary to pneumonia and poor appetite, showing improvement. 6. Insulin dependent diabetes mellitus, type 1, fairly well controlled with hemoglobin A1c of 7.2. 7. History of hypertension. 8. Hypomagnesemia now resolved. 9. Significant history of tobacco abuse, encouraged to stop smoking. 10. Depression and bipolar disorder with a component of schizophrenia, followed by [facility]. 11. Renal insufficiency secondary to a prerenal azotemia from dehydration, showing improvement. HISTORY OF PRESENT ILLNESS: This is a 56-year-old female patient who presented to the Emergency Department on the date of admission due to ongoing weakness for the last 4 weeks. She had also had some weight loss over the last couple of months, but does not know exactly how much she has lost. She does have a lengthy history of smoking in high school, and she smokes approximately one-half pack of cigarettes a day. She has also had some associated shortness of breath with exertion and just feeling tired and weak. In the Emergency Department, white count was elevated at 31,300 with a left shift and a significant increase in bands. She denied any fever. In the Emergency Department, she did run a low grade temperature of 99.7. Her chest x-ray showed she had a right lower lobe pneumonia. She also had some nausea and vomiting without significant diarrhea. She has a history of diabetes mellitus , type 1, since the age of 13. Her hemoglobin A1C was 7.2. She was also hyponatremic with a sodium of 126. Lactic acid 2.1. She had some renal dysfunction with a BUN of 36, creatinine 2.0. Amylase and lipase were both within normal limits. BNP was slightly elevated at 145. Cardiac enzymes were normal. She was admitted to the hospital for right lower lobe pneumonia, community acquired as well as exacerbation of chronic obstructive pulmonary disease. HOSPITAL COURSE: The patient was started on Rocephin and azithromycin. She was given fluids initially for early sepsis and was admitted for continued treatment. She was given aggressive pulmonary hygiene as well as bronchodilators. She remained afebrile and her blood pressure did go down to 95 /58, but has since stabilized into the 160s/70s. She ambulated in the hallway without any difficulty. Her oxygen saturations on room air remained in the mid- 90s. Clinically, she responded very well to her antibiotics and bronchodilators. Her chest x-ray continued to show right lower lobe pneumonia. She was encouraged to stop smoking and extensive smoking cessation was given to her. She will need a repeat chest x-ray on discharge at her followup appointment with [facility] and Crystal Auguste. There were previously noted lung nodules and a possible need for a CT at some point in the near future once she has good resolution of the pneumonia. She completed her azithromycin in the hospital and she will be discharged home on Mucinex and doxycycline and will need continued support with bronchodilators. DISCHARGE PLAN: She has a followup appointment with Crystal Auguste on 01/26/17 at 11 AM. She is discharged in good condition. She is to resume her previous diabetic diet and increase her activity as tolerated. She is to followup with Crystal Auguste or return to the hospital for any further complications or problems. DISCHARGE MEDICATIONS: 1. Levemir. 2. Prozac. 3. Trileptal. 4. Trazodone. 5. Lisinopril. 6. NovoLog. 7. Doxycycline. 8. Mucinex. Dr. Jules is the collaborating physician and available for consultation. #[id number] [facility]
== END 2017-01-18 14:33 | disposition home or self-care (01) | DRG 871 ==
LOC: ER 17:07 → OBSVTOIN 19:38 → MS 19:38
PROVIDERS: ADMIT Nurse Practitioner Family; ATTEND Nurse Practitioner Acute Care
DX: A41.9 Sepsis, unspecified organism (principal); J18.9 Pneumonia, unspecified organism; J44.0 Chronic obstructive pulmonary disease with (acute) lower respiratory infection; E87.1 Hypo-osmolality and hyponatremia; N17.9 Acute kidney failure, unspecified; E83.42 Hypomagnesemia; F17.210 Nicotine dependence, cigarettes, uncomplicated; E11.9 Type 2 diabetes mellitus without complications; I10 Essential (primary) hypertension; E78.5 Hyperlipidemia, unspecified; M19.90 Unspecified osteoarthritis, unspecified site; F31.9 Bipolar disorder, unspecified; F20.9 Schizophrenia, unspecified; Z79.84 Long term (current) use of oral hypoglycemic drugs; Z79.899 Other long term (current) drug therapy

== ENCOUNTER → 2017-01-30 | Outpatient (CLI) | payer SELFPAY | END | disposition home or self-care (01) | LOC: LAB.O 10:15 | PROVIDERS: ATTEND Nurse Practitioner Family | DX: N17.9 Acute kidney failure, unspecified (principal) ==

== ENCOUNTER 2017-03-27 10:51 | Inpatient (IN) | payer SELFPAY ==
[2017-03-27] MEDS ORDERED: IPRATROPIUM/ALBUTEROL 3 ML VIAL NEB ONE (11:29)
--- NOTE | 2017-03-27 11:45 | ED.PDOC ---
History of Present Illness - General Chief Complaint: Respiratory Problem Stated Complaint: cough Time Seen by Provider: 03/27/17 11:28 Source: patient - History of Present Illness Comments: PT REPORTS 2 WEEK HISTORY OF NON PRODUCTIVE COUGH ASSOCIATED WITH SOB. PT ALSO REPORTS PLEURITIC CP WITH COUGH. Timing/Duration: getting worse Cough Quality/Degree: dry cough Improving Factors: immobilization, rest Worsening Factors: movement Associated Symptoms: chest pain/soreness, cough, shortness of breath, wheezing Allergies/Adverse Reactions: Allergies bandaid Adverse Reaction (Uncoded 03/27/17 11:44) Home Medications: Ambulatory Orders Insulin Detemir [Levemir Flexpen] 30 units SUBCU QAM 08/11/15 Fluoxetine HCl [Prozac] 20 mg PO QAM 01/14/17 Lisinopril 20 mg PO DAILY 01/14/17 Novalog See Protocol SUBCU ACHS 01/14/17 OXcarbazepine [Trileptal] 300 mg PO DAILY 01/14/17 Trazodone HCl 50 mg PO BEDTIME 01/14/17 Oxcarbazepine [Trileptal] 600 mg PO BEDTIME 01/15/17 Amoxicillin 875 mg PO BID #20 tab 01/18/17 Doxycycline Hyclate [Vibramycin] 100 mg PO BIDFD #14 cap 01/18/17 guaiFENesin ER TAB [Mucinex Tab] 600 mg PO BID #60 tab 01/18/17 Review of Systems - Review of Systems Constitutional: Denies: chills, fever EENTM: Denies: throat pain Respiratory: States: cough, short of breath Cardiology: States: chest pain. Denies: syncope Gastrointestinal/Abdominal: Denies: nausea, vomiting Genitourinary: Denies: dysuria, frequency Musculoskeletal: Denies: joint pain, joint swelling Skin: Denies: dryness, lesions Neurological: Denies: headache, paresthesia Endocrine: States: no symptoms reported Hematologic/Lymphatic: States: no symptoms reported Past Medical History (General) - Patient Medical History Hx Seizures: Yes - When blood sugar is very low. Hx Stroke: No Hx Asthma: No Hx of COPD: No Hx Cardiac Disorders: No Hx Congestive Heart Failure: No Hx Pacemaker: No Hx Hypertension: Yes Hx Diabetes: Yes Hx MRSA: No - Vaccination History Hx Tetanus, Diphtheria Vaccination: No Hx Influenza Vaccination: No Hx Pneumococcal Vaccination: Yes - Social History Hx Tobacco Use: Yes Hx Alcohol Use: No Hx Substance Use: No Hx Depression: Yes Hx Physical Abuse: No Hx Emotional Abuse: No - Female History Patient : No Family Medical History - Family History Mother Family History: Unknown Living Status: Still Living Hx Family Asthma: No Hx Family Congestive Heart Failure: No Hx Family Hypertension: Yes Hx Family Stroke: No Hx Cardiac Disease: No Hx Family Diabetes: No Hx Family Cancer: No Father Living Status: Hx Family Asthma: No Hx Family Congestive Heart Failure: No Hx Family Hypertension: Yes Hx Family Stroke: No Hx Cardiac Disease: Yes Hx Family Diabetes: No Hx Family Cancer: No Physical Exam - Physical Exam General Appearance: Alert, Comfortable, No apparent distress ENT Exam: hearing grossly normal Neck: normal inspection Respiratory: decreased breath sounds - ON THE RIGHT, crackles - SCATTERED Cardiovascular/Chest: regular rate, rhythm, no murmur Gastrointestinal/Abdominal: non tender, soft Extremity: normal range of motion, normal inspection Neurologic: alert, normal mood/affect, oriented x 3 Skin Exam: normal color, warm/dry Progress - Progress Progress: 03/27/17 14:02 PT RESTING COMFORTABLY, LABS AND DIAGNOSTIC STUDIES DISCUSSED. PT AGREES WITH PLAN TO ADMIT FOR FURTHER TREATMENT. - Results/Orders Results/Orders: Laboratory Tests 03/27/17 03/27/17 03/27/17 11:30 11:42 12:52 WBC 20.1 H* RBC 4.02 L Hgb 11.6 L Hct 34.9 L MCV 86.6 MCH 28.8 MCHC 33.4 RDW 14.4 Plt Count 493 H MPV 7.2 L Absolute Neuts (auto) Not Reportable Absolute Lymphs (auto) Not Reportable Absolute Monos (auto) Not Reportable Absolute Eos (auto) Not Reportable Neutrophils % Not Reportable Neutrophils % (Manual) 92.0 Lymphocytes % Not Reportable Lymphocytes % (Manual) 7.0 Monocytes % Not Reportable Monocytes % (Manual) 1.0 Eosinophils % Not Reportable Basophils % Not Reportable Platelet Estimate Increased Normal RBC Morphology Normal rbc morph pCO2 pO2 HCO3 ABG pH ABG O2 Saturation ABG Base Excess ABG Deoxyhemoglobin Oxyhemoglobin % Carboxyhemoglobin % Methemoglobin % Sat Calc Total Hemoglobin Sodium 134 L Potassium 4.2 Chloride 96 L Carbon Dioxide 27 Anion Gap 15.2 BUN 16 Creatinine 1.18 BUN/Creatinine Ratio 13.6 Random Glucose 221 H Serum Osmolality 276.2 Lactic Acid 1.2 Calcium 9.2 Total Bilirubin 0.6 AST 33 ALT 39 Alkaline Phosphatase 169 H Serum Total Protein 7.6 Albumin 3.0 L Globulin 4.6 H Albumin/Globulin Ratio 0.7 L 03/27/17 13:00 WBC RBC Hgb Hct MCV MCH MCHC RDW Plt Count MPV Absolute Neuts (auto) Absolute Lymphs (auto) Absolute Monos (auto) Absolute Eos (auto) Neutrophils % Neutrophils % (Manual) Lymphocytes % Lymphocytes % (Manual) Monocytes % Monocytes % (Manual) Eosinophils % Basophils % Platelet Estimate Normal RBC Morphology pCO2 35 pO2 53 L HCO3 23.4 ABG pH 7.440 ABG O2 Saturation 90.2 L ABG Base Excess 0.1 ABG Deoxyhemoglobin 9.5 H Oxyhemoglobin % 87.5 L Carboxyhemoglobin % 1.4 Methemoglobin % Sat 1.6 H Calc Total Hemoglobin 10.3 L Sodium Potassium Chloride Carbon Dioxide Anion Gap BUN Creatinine BUN/Creatinine Ratio Random Glucose Serum Osmolality Lactic Acid Calcium Total Bilirubin AST ALT Alkaline Phosphatase Serum Total Protein Albumin Globulin Albumin/Globulin Ratio Departure - Departure Clinical Impression: Bilateral pneumonia, Hypoxemia, Tobacco abuse, Leukocytosis Time of Disposition: 14:03 Disposition: Admit Patient Condition: Fair Departure Forms: ED Discharge - Pt. Copy, Patient Portal Self Enrollment Referrals: Crystal Auguste NP [Primary Care Provider] - 1-2 Weeks Home Medications: Ambulatory Orders Insulin Detemir [Levemir Flexpen] 30 units SUBCU QAM 08/11/15 Fluoxetine HCl [Prozac] 20 mg PO QAM 01/14/17 Lisinopril 20 mg PO DAILY 01/14/17 Novalog See Protocol SUBCU ACHS 01/14/17 OXcarbazepine [Trileptal] 300 mg PO DAILY 01/14/17 Trazodone HCl 50 mg PO BEDTIME 01/14/17 Oxcarbazepine [Trileptal] 600 mg PO BEDTIME 01/15/17 Amoxicillin 875 mg PO BID #20 tab 01/18/17 Doxycycline Hyclate [Vibramycin] 100 mg PO BIDFD #14 cap 01/18/17 guaiFENesin ER TAB [Mucinex Tab] 600 mg PO BID #60 tab 01/18/17 Decision To Admit - Decistion To Admit Decision to Admit Reason: Admit from ER Decision to Admit Date: 03/27/17 - CASE DISCUSSED WITH AQUILINO SANFORD NP WHO AGREES TO ADMIT. Decision to Admit Time: 14:04
--- NOTE | 2017-03-27 12:34 | RAD ---
EXAM DESCRIPTION: XR CHEST 2 VIEWS CLINICAL HISTORY: COUGH/SOB COMPARISON: 01/18/2017 TECHNIQUE: PA/lateral FINDINGS: Normal heart size and mediastinal contour. Bilateral lower lobe infiltrates. Moderate right and small left pleural effusion, increased since previous study. The upper lobes remain clear IMPRESSION: No acute cardiopulmonary process. Electronically signed by: Florencio Whitney MD 03/27/2017 12:32 PM [employer]
[2017-03-27] MEDS ORDERED: cefTRIAXone SODIUM 1 GM in SODIUM CHL 0.9% 50ML MIN-BAG+ 50 ML IVPB ONE (12:36)
[2017-03-27] MEDS ORDERED: AZITHROMYCIN IV 500 MG in SODIUM CHLORIDE 0.9% 250ML 250 ML IVPB ONE (12:36)
[2017-03-27] MEDS ORDERED: cefTRIAXone SODIUM 1 GM VIAL ONE (12:53)
[2017-03-27] MEDS ORDERED: SODIUM CHL 0.9% 50ML MIN-BAG+ 50 ML IVPB ONE (12:54)
[2017-03-27] MEDS ORDERED: AZITHROMYCIN IV 500 MG VIAL IVPB ONE (13:45)
[2017-03-27] MEDS ORDERED: SODIUM CHLORIDE 0.9% 250ML 250 ML ONE ×2 (13:45→13:50)
[2017-03-27] MEDS ORDERED: ONDANSETRON INJ 4 MG/2 ML VIAL IV ONE (15:41)
--- NOTE | 2017-03-27 17:14 | HP ---
SUPERVISING PHYSICIAN: Florencio Farley M.D. CHIEF COMPLAINT: Cough with shortness of breath. HISTORY OF PRESENT ILLNESS: This is a 56 year-old female with a history of heavy smoking as well as type 1 diabetes who also has a history of pneumonia in the past. She states for the past 2 weeks or so she has had a cough which has progressively gotten a little bit worse. It is also productive with holly colored sputum. She does state she has smoked less since she has been sick. She coughs so hard and severely that it makes her nearly pass out, she said. She was seen in the Emergency Room earlier today and was noted to have a white count of 20,000. Chest x-ray was done and showed bibasilar pneumonia. ABG was done also and her PO2 was pretty low on that as well. She was not retaining any CO2 at that time. They gave her Rocephin and azithromycin in the Emergency Room along with nebulizer treatments. She had minimal improvement but given her leukocytosis and bilateral infiltrates as well as hypoxemia, she was referred for admission. At the time of examination the patient is alert. She has mild dyspnea at rest. PAST MEDICAL HISTORY: 1. Type 1 diabetes mellitus. 2. Hypertension. 3. Hyperlipidemia. 4. Osteoarthritis. 5. Depression with bipolar. 6. What sounds like probable diabetic retinopathy as well as diabetic gastroparesis, although these 2 are undiagnosed. PAST SURGICAL HISTORY: 1. sections times 2 and which one of those she actually had an appendectomy. 2. Hysterectomy with unilateral salpingo-oophorectomy. CURRENT MEDICATIONS: 1. NovoLog sliding scale. 2. Levemir 30 units subcutaneously in the morning. 3. Prozac 20 mg p.o. every AM. 4. Lisinopril 20 mg p.o. daily. 5. Trileptal 300 mg in the morning. 6. Trileptal 300 mg around 3:00 in the afternoon. 7. Trileptal 600 mg at bedtime. 8. Trazodone 50 mg at bedtime. 9. Guaifenesin ER 600 mg at bedtime. ALLERGIES: NO KNOWN DRUG ALLERGIES. FAMILY HISTORY: Diabetes, pancreatic cancer, heart disease and Alzheimer's. SOCIAL HISTORY: The patient smokes 3/4 of a pack a day and has since 15 years of age. No significant alcohol or illicit drug use. REVIEW OF SYSTEMS: CONSTITUTIONAL: No fever or chills. No recent weight loss or weight gain. HEENT: No headaches vision changes, ear pain, nasal congestion or throat pain. CARDIOVASCULAR: No chest pain or palpitations, but she has had some peripheral edema. RESPIRATORY: Positive for cough. No hemoptysis. No pleuritic chest pain. The cough is productive. Positive for dyspnea. GASTROINTESTINAL: No nausea or vomiting. She has had issues with constipation and cramping. GENITOURINARY: No dysuria, frequency or flank pain. MUSCULOSKELETAL: No joint pain, joint swelling or muscle cramps. ENDOCRINE: No polydipsia, polyuria or polyphagia. No heat or cold intolerance. HEMATOLOGIC: No easy bruising or transfusion reactions. INTEGUMENT: No rashes, lesions or wounds. PHYSICAL EXAMINATION: VITAL SIGNS: Blood pressure 131/73, heart rate 92, respiratory rate 22, temperature 97.8, oxygen saturation 96% on 2 liters via nasal cannula. GENERAL: Ms. Sinclair is a 56 year-old female in mild respiratory distress at rest at this time. HEENT: Head is normocephalic and atraumatic. EYES: Pupils are equal and reactive. NOSE: No drainage. THROAT: With moist buccal mucosa. NECK: Supple. Midline trachea. No jugular venous distention. CHEST: Symmetrical with equal rise and fall of the chest with inspiration and expiration. Lung sounds are bibasilar, diminishing and mild rhonchi on the right greater than left. CARDIOVASCULAR: The patient has a regular rate and rhythm. Normal S1 and S2. ABDOMEN: Soft, positive bowel sounds. No tenderness to palpation. EXTREMITIES: Lower extremities with some trace ankle edema bilaterally. Peripheral pulses are adequate. Capillary refill less than 2 seconds. NEUROLOGIC: The patient is alert and oriented. LABORATORY: Sodium 134, potassium 4.2, chloride 96, CO2 27, BUN 16, creatinine 1.18, glucose 221, calcium 9.2. Lactic acid is normal at 1.2. CBC is significant with white blood cell count of 20,000. Arterial blood gas showed pH of 7.44, PCO2 of 35, PO2 of 53, bicarb 23.4 and base excess of 0.1. RADIOLOGY: Chest x-ray is consistent with bibasilar pneumonia. ASSESSMENT: 1. Bibasilar pneumonia. 2. Hypoxemia. 3. Probable component of acute on chronic bronchitis. 4. Uncontrolled diabetes mellitus. 5. History of bipolar disorder. 6. Likely gastroparesis. PLAN: 1. I have placed the patient on Levaquin 750 mg IV daily for now. Cultures have been drawn for her blood as well as sputum cultures. Will monitor these and adjust antibiotics accordingly. 2. Hypoxemia related to #1. I would continue supplemental oxygen and continue to wean this as tolerated. 3. Nebulizer therapy have been started as well. At this time, she has no active wheezing, therefore I will not initiate any corticosteroids. Additionally , corticosteroids would probably throw her blood sugars even higher at this time. 4. I have restarted her home medications, including insulin with Levemir and sliding scale. 5. Will check a hemoglobin A1c, TSH along with other followup labs tomorrow. Chest x-ray has been ordered as well. 6. DVT prophylaxis was ordered as well. Dr. Farley is the collaborating physician. #[id number] [facility]
[2017-03-27] MEDS ORDERED: ACETAMINOPHEN 325 MG TAB PO PRN (17:50)
[2017-03-27] MEDS ORDERED: GLUCAGON INJ 1 MG VIAL SUBCU PRN (17:50)
[2017-03-27] MEDS ORDERED: DEXTROSE 50% 25 GM/50 ML SYG IV PRN (17:50)
[2017-03-27] MEDS ORDERED: levoFLOXacin 750MG IV 750 MG in PREMIX BAG 1 BAG IVPB SCH (18:00)
[2017-03-27] MEDS: IV SET AND CAP CHANGE INJ INJ SCH (18:33)
[2017-03-27] MEDS ORDERED: ENOXAPARIN SODIUM 40 MG/0.4 ML SYG SUBCU SCH (19:00)
[2017-03-27] MEDS ORDERED: OXcarbazepine 300 MG TAB PO ONE (19:41)
[2017-03-27] MEDS: IPRATROPIUM/ALBUTEROL 3 ML VIAL INH SCH (20:05)
[2017-03-27] MEDS: traZODone HCL 50 MG TAB PO SCH (20:39)
[2017-03-27] MEDS: guaiFENesin ER TAB 600 MG TAB PO SCH (20:39)
[2017-03-27] MEDS: SODIUM CHLORIDE 0.9% (FLUSH) 10 ML SYG IV PRN (20:42)
[2017-03-27] MEDS ORDERED: OXCARBAZEPINE 600 MG PO SCH (21:00)
[2017-03-27] MEDS: INSULIN LISPRO 100 UNITS/ML PEN SUBCU SCH (21:16)
--- NOTE | 2017-03-28 07:28 | RAD ---
EXAM DESCRIPTION: Chest,2 Views CLINICAL HISTORY: Pneumonia cough, shortness of breath. Follow-up COMPARISON: March 27, 2017 FINDINGS: Two-view chest x-ray shows cardiomediastinal silhouette and pulmonary vasculature to be within normal limits. Lungs are normally aerated. Bilateral interstitial alveolar airspace densities are seen in the lower lobes with slightly increased interstitial densities in the left upper lobe. There remains blunting of the costophrenic angles right greater than left similar to previous. Mild disc degenerative changes of the spine are seen. IMPRESSION: Persistent right current left small pleural effusions are seen with continued bibasilar atelectasis versus pneumonia versus aspiration. Increasing infiltrate or atelectasis in the left upper lobe is seen. Electronically signed by: Blu Hoyos MD 03/28/2017 7:27 AM [facility]
[2017-03-28] MEDS: INSULIN LISPRO 100 UNITS/ML PEN SUBCU SCH ×4 (07:30→21:07)
[2017-03-28] MEDS: IPRATROPIUM/ALBUTEROL 3 ML VIAL INH SCH ×4 (07:39→20:06)
[2017-03-28] MEDS ORDERED: INSULIN DETEMIR 100 UNITS/ML PEN SUBCU ONE (07:47)
[2017-03-28] MEDS ORDERED: LISINOPRIL 10 MG TAB ONE (07:47)
[2017-03-28] MEDS: LISINOPRIL 10 MG TAB PO SCH (08:37)
[2017-03-28] MEDS: OXcarbazepine 300 MG TAB PO SCH ×3 (08:37→21:05)
[2017-03-28] MEDS: FLUoxetine HCL 20 MG CAP PO SCH (08:37)
[2017-03-28] MEDS: INSULIN DETEMIR 100 UNITS/ML PEN SUBCU SCH (08:38)
[2017-03-28] MEDS ORDERED: OXcarbazepine 300 MG TAB PO SCH (12:00)
--- NOTE | 2017-03-28 14:32 | PN ---
SUPERVISING PHYSICIAN: Florencio Farley MD DATE: 03/28/17 SUBJECTIVE: The patient feels a little bit better. She is moving around, coughing up quite a bit of sputum. Her shortness of breath is a little bit better. No complaints of pain at this time. OBJECTIVE: VITAL SIGNS: Blood pressure 130/70. Heart rate 95. Respiratory rate 22. Temperature 97.9. Oxygen saturation 95%. GENERAL: Ms. Sinclair is a 56-year-old female in no severe distress at this time. HEENT: Normocephalic, atraumatic. Pupils are equal and reactive. No nasal drainage. Moist buccal mucosa. NECK: Supple. Midline trachea. No jugular venous distention. CHEST: Symmetrical with equal rise and fall of the chest with inspiration and expiration. Lungs sounds are a little bit diminished in the bases and she also has some coarse sounds int he bases. CARDIOVASCULAR: Regular rate and rhythm. Normal S1, S2. ABDOMEN: Soft. Positive bowel sounds. GENITOURINARY: Deferred. LOWER EXTREMITIES: Some ankle edema bilaterally. Pulses are 2+. Capillary refill is less than 2 seconds. NEUROLOGIC: The patient is alert. LABORATORY: Labs have been reviewed. So far, the cultures are negative. White blood cell count is improved to 17.6, hemoglobin 9.5, hematocrit 28.9, platelet count 397. Chemistry shows sodium 132, potassium 4.4, chloride 98, CO2 25, BUN 18, creatinine 1.38, glucose 98, calcium 8.3. TSH 2.59. Hemoglobin A1c 7.7 Chest x-ray still with bibasilar pneumonia and possible development of left upper lobe pneumonia seen as well. ASSESSMENT: 1. Bibasilar pneumonia with possible development of left upper lobe pneumonia. 2. Hypoxemia, appears to bee improved. 3. Acute on chronic bronchitis. 4. Uncontrolled diabetes mellitus as evidenced by hemoglobin A1c of 7.7. 5. Mild acute kidney injury. 6. History of bipolar disorder. 7. Likely gastroparesis. PLAN: 1. With improvement in the white blood cell count as well as negative blood cultures and sputum cultures so far, we will continue the Levaquin IV. However, given the fact she has been having mild increase in her creatinine, this is being renally dose adjusted by pharmacy. 2. Hypoxemia seems to be a little bit better. We will continue to monitor this. 3. Nebulizer therapies will be continued as well. She is tolerating bronchial hygiene via respiratory therapy. 4. Blood sugar on her chemistry this morning was controlled at 98. We will continue to monitor this. 5. I have started her on some IV fluids given the mild increase in the creatinine. We will recheck labs tomorrow to ensure there is no further increase in the creatinine. 6. Continue DVT and ulcer prophylaxis. #[id number] [facility]
[2017-03-28] MEDS ORDERED: levoFLOXacin 250MG IV 50 ML IVPB ONE (17:42)
[2017-03-28] MEDS ORDERED: levoFLOXacin 250MG IV 250 MG in PREMIX BAG 1 BAG IVPB SCH (18:00)
[2017-03-28] MEDS: SODIUM CHLORIDE 0.9% 1000ML 1,000 ML IVS PRN (18:47)
[2017-03-28] MEDS ORDERED: ENOXAPARIN SODIUM 40 MG/0.4 ML SYG SUBCU ONE (19:52)
[2017-03-28] MEDS: guaiFENesin ER TAB 600 MG TAB PO SCH (21:05)
[2017-03-28] MEDS: traZODone HCL 50 MG TAB PO SCH (21:05)
[2017-03-28] MEDS: ENOXAPARIN SODIUM 40 MG/0.4 ML SYG SUBCU SCH (21:07)
[2017-03-29] MEDS: SODIUM CHLORIDE 0.9% 1000ML 1,000 ML IVS PRN (03:58)
[2017-03-29] MEDS: INSULIN LISPRO 100 UNITS/ML PEN SUBCU SCH ×4 (07:38→21:04)
[2017-03-29] MEDS: IPRATROPIUM/ALBUTEROL 3 ML VIAL INH SCH ×4 (07:51→20:14)
--- NOTE | 2017-03-29 08:02 | RAD ---
EXAM DESCRIPTION: Chest,2 Views CLINICAL HISTORY: pneumonia COMPARISON: March 28, 2017 FINDINGS: Two-view chest x-ray shows cardiomediastinal silhouette and pulmonary vasculature to be within normal limits. Lungs are normally aerated. Interval increased interstitial alveolar consolidation in the left upper lobe is seen compared to previous exam. Increased interstitial markings in the right upper lobe are seen compared to previous. There remains blunting of the right greater than left costophrenic angles with bibasilar interstitial alveolar airspace densities similar to previous exam. Mild disc degenerative changes of the spine are seen. IMPRESSION: Interval worsening of left upper lobe pneumonia versus aspiration and increasing infiltrate in the right upper lobe. Continued follow-up until resolution is recommended. Mildly increased bilateral pleural effusions with associated basilar atelectasis or infiltrates is again seen. Electronically signed by: Blu Hoyos MD 03/29/2017 8:00 AM [facility]
[2017-03-29] MEDS: LISINOPRIL 10 MG TAB PO SCH (10:10)
[2017-03-29] MEDS: OXcarbazepine 300 MG TAB PO SCH ×3 (10:11→21:03)
[2017-03-29] MEDS: FLUoxetine HCL 20 MG CAP PO SCH (10:11)
[2017-03-29] MEDS: INSULIN DETEMIR 100 UNITS/ML PEN SUBCU SCH (10:11)
[2017-03-29] MEDS: NICOTINE PATCH 21 MG TD SCH (12:21)
[2017-03-29] MEDS ORDERED: guaiFENesin/DEXTROMETH SYRUP 5 ML UD PO PRN (13:04)
[2017-03-29] MEDS: KCL 20 MEQ/NS 1,000 ML IVS PRN (13:24)
--- NOTE | 2017-03-29 14:22 | PN ---
SUPERVISING PHYSICIAN: Florencio Farley MD DATE: 03/29/17 SUBJECTIVE: The patient feels a little bit better today. She states she still feels pretty weak. She is still having coughing episodes and still having sputum production with this cough. OBJECTIVE: VITAL SIGNS: Blood pressure 113/72. Heart rate 88. Respiratory rate 22. Temperature 96.8. Oxygen saturation 92% on 2 liters via nasal cannula. GENERAL: Ms. Sinclair is a 56-year-old female in no active distress currently. HEENT: Normocephalic, atraumatic. Pupils are equal and reactive. No nasal drainage. Throat with moist mucosa. NECK: Supple. Midline trachea. No jugular venous distention. CHEST: Symmetrical with equal rise and fall of the chest with inspiration and expiration. Lungs sounds are diminished in the bases. No coarse sounds or wheezing at this time. CARDIOVASCULAR: Regular rate and rhythm. Normal S1, S2. ABDOMEN: Soft. Positive bowel sounds. No tenderness to palpation. GENITOURINARY: Deferred. EXTREMITIES: Lower extremities with bilateral ankle edema. Pulses 2+. Capillary refill is less than 2 seconds. NEUROLOGIC: The patient is alert and oriented. LABORATORY: Improvement in the white blood cell count to 16.4, hemoglobin 9.1, hematocrit 27.5, platelet count 358. Chemistry shows sodium 132, potassium 4.0 , chloride 98, CO2 24, BUN 18, creatinine 1.24, glucose 75 this morning, calcium 8.2. RADIOLOGY: Chest x-ray showing some interval worsening of the left upper lobe infiltrate, bibasilar infiltrates still exist. ASSESSMENT: 1. Bibasilar pneumonia with left upper lobe infiltrate as well. 2. Hypoxemia. 3. Acute on chronic bronchitis. 4. Uncontrolled diabetes mellitus. 5. Mild acute kidney injury, improved. 6. History of bipolar disorder. 7. Likely gastroparesis. PLAN: 1. White blood cell count continues to improve. She is having a little bit of worsening on her chest x-ray, however, she is also being hydrated. Clinically, she seems to be improved, so we will continue the IV antibiotics. If anything changes, I would add cefepime to the antibiotic regimen. 2. Hypoxemia still exists and she is requiring oxygen, but it seems to be acceptable at this time. 3. Continue nebulizer therapy and bronchial hygiene. 4. Glucose was a little bit on the low side this morning. We will continue to monitor this. 5. Creatinine is now on the high side. We will continue the IV fluids for another 24 hours and likely discontinue them tomorrow. 6. Continue DVT and GI ulcer prophylaxis. #[id number] [facility]
[2017-03-29] MEDS: levoFLOXacin 750MG IV 750 MG in PREMIX BAG 1 BAG IVPB SCH (19:10)
[2017-03-29] MEDS: ENOXAPARIN SODIUM 40 MG/0.4 ML SYG SUBCU SCH (21:02)
[2017-03-29] MEDS: traZODone HCL 50 MG TAB PO SCH (21:02)
[2017-03-29] MEDS: guaiFENesin ER TAB 600 MG TAB PO SCH (21:02)
[2017-03-29] MEDS: MAGNESIUM HYDROXIDE 30 ML UD PO PRN (21:05)
[2017-03-30] MEDS: KCL 20 MEQ/NS 1,000 ML IVS PRN (04:06)
--- NOTE | 2017-03-30 07:13 | RAD ---
EXAM DESCRIPTION: Chest,1 View CLINICAL HISTORY: pneumonia COMPARISON: March 29, 2017 FINDINGS: The cardiomediastinal silhouette is unremarkable. Again seen are patchy alveolar opacities in both lungs, worse in the left mid and upper lung but including bibasilar consolidation with additional consolidation in the right upper lobe. There are small bilateral pleural effusions, and findings appear slightly worse from yesterday. The lung volumes are within normal range. There is no pneumothorax or acute fracture. IMPRESSION: Bilateral pneumonia with small bilateral pleural effusions, slightly worse from yesterday. Electronically signed by: Dipak Deras MD 03/30/2017 7:12 AM [facility]
[2017-03-30] MEDS: INSULIN DETEMIR 100 UNITS/ML PEN SUBCU SCH (09:04)
[2017-03-30] MEDS: NICOTINE PATCH 21 MG TD SCH (09:04)
[2017-03-30] MEDS: INSULIN LISPRO 100 UNITS/ML PEN SUBCU SCH ×4 (09:06→21:09)
[2017-03-30] MEDS: LISINOPRIL 10 MG TAB PO SCH (09:07)
[2017-03-30] MEDS: SODIUM CHLORIDE 0.9% (FLUSH) 10 ML SYG IV SCH ×2 (09:07→20:48)
[2017-03-30] MEDS: OXcarbazepine 300 MG TAB PO SCH ×3 (09:07→20:47)
[2017-03-30] MEDS: FLUoxetine HCL 20 MG CAP PO SCH (09:07)
[2017-03-30] MEDS: IPRATROPIUM/ALBUTEROL 3 ML VIAL INH SCH ×4 (09:20→19:42)
--- NOTE | 2017-03-30 09:55 | PCM.CORE ---
Physician DVT/VTE - Nurse DVT Assessment & Total Each Risk Factor Represents 1 Point: Age 41-60, Hx of smoking past year Each Risk Factor is 1 Point: Varicose Veins/Edema Legs, Serious Lung disease ( pnemonia <1month, COPD, emphysema,etc) DVT Assessment Score: 4 - 3-4 High Risk Treatments: Early Ambulation *, Sequential Compression Device Pharmacological: Enoxaparin 40 mg SQ Daily
[2017-03-30] MEDS: ALPRAZolam 0.25 MG TAB PO PRN ×2 (12:51→22:39)
[2017-03-30] MEDS: CHLORPHENIRAMINE W/HYDROCODONE 5 ML UD PO PRN (12:54)
[2017-03-30] MEDS: MAGNESIUM HYDROXIDE 30 ML UD PO PRN (12:56)
[2017-03-30] MEDS ORDERED: SODIUM CHL 0.9% 50ML MIN-BAG+ 50 ML IVPB ONE ×2 (15:21→19:29)
[2017-03-30] MEDS ORDERED: CEFEPIME 2 GM VIAL IVPB ONE ×2 (15:21→19:29)
[2017-03-30] MEDS: SODIUM CHLORIDE 0.9% (FLUSH) 10 ML SYG IV PRN (15:29)
[2017-03-30] MEDS: CEFEPIME 2 GM in SODIUM CHL 0.9% 50ML MIN-BAG+ 50 ML IVPB SCH ×2 (15:29→21:57)
[2017-03-30] MEDS: levoFLOXacin 750MG IV 750 MG in PREMIX BAG 1 BAG IVPB SCH (17:40)
[2017-03-30] MEDS: IV SET AND CAP CHANGE INJ INJ SCH (17:40)
--- NOTE | 2017-03-30 19:48 | PN ---
DATE: 03/30/17 SUPERVISING PHYSICIAN: Florencio Farley M.D. SUBJECTIVE: The patient is having a significant amount of cough with productive sputum which appears to be much more quantity than previous days. She is tolerating chest physiotherapy. Her white count did go up as well as x- ray shows slightly worsening from previous days. She has had no nausea, vomiting or diarrhea. OBJECTIVE: VITAL SIGNS: T max 98.6, pulse 90, blood pressure 151/79, respirations 20, satting 98% on nasal cannula at 2 liters at rest. I's and O's show a positive balance of 1610 with 2060 in, 450 out. Weight is 65.4 kg. CHEST: Lung sounds are diminished throughout all owusu. There continues to be some coarse sounds on the posterolateral aspect bilaterally but no wheezing. HEART: Regular rate and rhythm. ABDOMEN: Soft, non-tender. Positive bowel sounds. EXTREMITIES: There was continued 2+ edema to the lower extremities. NEUROLOGIC: She is alert and oriented times three. LABORATORY: White count is slightly worsened today, it is up to 17,200, hemoglobin is stable at 9.8 and 29.9, platelet count 387,000. Differential continues to show a left shift. Chemistries show hyponatremia of 130 with potassium 4.5, BUN 18, creatinine 1.16. Glucose is between 87 and 246. C reactive protein was elevated at 20.9. Urinalysis is still pending. MICROBIOLOGY: Sputum culture at 48 hours showed normal cecy. Blood cultures remain negative at 3 days. RADIOLOGY: Chest x-ray today per radiology interpretation of single view chest shows bilateral pneumonia with small bilateral pleural effusions, slightly worse than yesterday. ASSESSMENT: 1. Bilateral pneumonia with left upper lobe infiltrate showing slow clinical improvement with concerns for possible Pseudomonas infection as the patient has had a round of treatment for pneumonia in December and has been on multiple antibiotics. 2. Hypoxemia secondary to #1 showing slight improvement with aggressive pulmonary hygiene. 3. Acute on chronic bronchitis again with concerns for Pseudomonas infection community acquired showing slow improvement. 4. Uncontrolled diabetes mellitus. 5. Renal insufficiency showing improvement after IV fluids. 6. History of bipolar disorder. 7. Possible gastroparesis secondary to uncontrolled diabetes showing some slight improvement with IV fluids. PLAN: Will continue with aggressive pulmonary hygiene and chest physiotherapy. Given that she has had some history of antibiotic usage in the last 4 months along with multiple antibiotics and pneumonia, and is showing slow improvement with slightly worsening radiographic studies, I will go ahead and start her on additional antibiotic coverage for concerns for Pseudomonas, therefore will start her on Cefipime in addition to the Levaquin. Will encourage her to keep her legs elevated and utilize SCDs in efforts to decrease the lower extremity edema. She continues on DVT prophylaxis. Will continue to follow glucoses with sliding scale and adjust as needed. I have saline locked her as she has shown a positive balance and monitor closely, and if need be utilize low dose diuretic to assist with some of the lower extremity edema should this not resolve in the next 12 to 24 hours. Will anticipate at least an additional 24 to 48 hours of parenteral antibiotics needed for clinical improvement and continue to monitor, and monitor labs. Until discharge, will continue to monitor and treat appropriately. #[id number] [facility]
[2017-03-30] MEDS ORDERED: BISACODYL SUPPOSITORY 10 MG PR PRN (20:19)
[2017-03-30] MEDS: DOCUSATE SODIUM 100 MG CAP PO SCH (20:48)
[2017-03-30] MEDS: ENOXAPARIN SODIUM 40 MG/0.4 ML SYG SUBCU SCH (20:48)
[2017-03-30] MEDS: traZODone HCL 50 MG TAB PO SCH (20:48)
[2017-03-30] MEDS: guaiFENesin ER TAB 600 MG TAB PO SCH (20:48)
[2017-03-31] MEDS ORDERED: CEFEPIME 2 GM VIAL IVPB ONE ×3 (01:29→20:08)
[2017-03-31] MEDS ORDERED: SODIUM CHL 0.9% 50ML MIN-BAG+ 50 ML IVPB ONE ×3 (01:29→20:06)
[2017-03-31] MEDS: CHLORPHENIRAMINE W/HYDROCODONE 5 ML UD PO PRN (01:36)
[2017-03-31] MEDS: CEFEPIME 2 GM in SODIUM CHL 0.9% 50ML MIN-BAG+ 50 ML IVPB SCH ×3 (06:30→21:34)
--- NOTE | 2017-03-31 07:29 | RAD ---
Study: Frontal and Lateral Views of the Chest. Indication: pneumonia Comparison: March 30, 2017. Impression: Mild cardiomegaly. Patchy consolidative changes throughout the bilateral lungs are minimally improved. Small to moderate right and small left pleural effusions appear stable. No pneumothorax. Continued follow-up recommended. Electronically signed by: Zay Solitario MD 03/31/2017 7:28 AM [facility]
[2017-03-31] MEDS: DOCUSATE SODIUM 100 MG CAP PO SCH ×2 (08:23→20:58)
[2017-03-31] MEDS: LISINOPRIL 10 MG TAB PO SCH (08:23)
[2017-03-31] MEDS: POLYETHYLENE GLYCOL 3350 17 GM PCKT PO SCH (08:23)
[2017-03-31] MEDS: OXcarbazepine 300 MG TAB PO SCH ×3 (08:23→20:58)
[2017-03-31] MEDS: NICOTINE PATCH 21 MG TD SCH (08:23)
[2017-03-31] MEDS: FLUoxetine HCL 20 MG CAP PO SCH (08:23)
[2017-03-31] MEDS: INSULIN LISPRO 100 UNITS/ML PEN SUBCU SCH ×4 (08:24→20:58)
[2017-03-31] MEDS: SODIUM CHLORIDE 0.9% (FLUSH) 10 ML SYG IV SCH ×2 (08:31→20:59)
[2017-03-31] MEDS: INSULIN DETEMIR 100 UNITS/ML PEN SUBCU SCH (08:34)
[2017-03-31] MEDS: IPRATROPIUM/ALBUTEROL 3 ML VIAL INH SCH ×4 (09:06→19:56)
[2017-03-31] MEDS: FUROSEMIDE INJ 40 MG/4 ML VIAL IV SCH (11:47)
[2017-03-31] MEDS: levoFLOXacin 750MG IV 750 MG in PREMIX BAG 1 BAG IVPB SCH (17:56)
[2017-03-31] MEDS: guaiFENesin ER TAB 600 MG TAB PO SCH (20:57)
[2017-03-31] MEDS: traZODone HCL 50 MG TAB PO SCH (20:58)
[2017-03-31] MEDS: ENOXAPARIN SODIUM 40 MG/0.4 ML SYG SUBCU SCH (20:58)
[2017-04-01] MEDS ORDERED: SODIUM CHL 0.9% 50ML MIN-BAG+ 50 ML IVPB ONE ×3 (03:36→20:43)
[2017-04-01] MEDS ORDERED: CEFEPIME 2 GM VIAL IVPB ONE ×3 (03:37→20:44)
[2017-04-01] MEDS: CEFEPIME 2 GM in SODIUM CHL 0.9% 50ML MIN-BAG+ 50 ML IVPB SCH ×3 (06:24→21:36)
--- NOTE | 2017-04-01 06:26 | RAD ---
EXAM DESCRIPTION: Chest,2 Views CLINICAL HISTORY: pneumonia COMPARISON: 03/31/2017 FINDINGS: Single frontal view of the chest. The cardiomediastinal silhouette has normal size and contour. Bilateral airspace opacities, most confluent in the lung bases and left midlung. These are not significantly changed. Small bilateral pleural effusions. No pneumothorax. Low lung volumes. Osseous structures upper abdominal soft tissues are stable. IMPRESSION: 1. Stable appearance of the chest. Electronically signed by: Devan Mcgee 04/01/2017 6:25 AM [facility]
[2017-04-01] MEDS: SODIUM CHLORIDE 0.9% (FLUSH) 10 ML SYG IV PRN (06:27)
[2017-04-01] MEDS: MAGNESIUM HYDROXIDE 30 ML UD PO PRN (06:36)
[2017-04-01] MEDS: INSULIN LISPRO 100 UNITS/ML PEN SUBCU SCH ×4 (08:08→21:15)
[2017-04-01] MEDS: IPRATROPIUM/ALBUTEROL 3 ML VIAL INH SCH ×4 (08:18→20:20)
[2017-04-01] MEDS: FLUoxetine HCL 20 MG CAP PO SCH (09:46)
[2017-04-01] MEDS: FUROSEMIDE INJ 40 MG/4 ML VIAL IV SCH (09:46)
[2017-04-01] MEDS: DOCUSATE SODIUM 100 MG CAP PO SCH ×2 (09:46→21:24)
[2017-04-01] MEDS: OXcarbazepine 300 MG TAB PO SCH ×3 (09:46→21:24)
[2017-04-01] MEDS: LISINOPRIL 10 MG TAB PO SCH (09:46)
[2017-04-01] MEDS: INSULIN DETEMIR 100 UNITS/ML PEN SUBCU SCH (09:47)
[2017-04-01] MEDS: SODIUM CHLORIDE 0.9% (FLUSH) 10 ML SYG IV SCH ×2 (09:47→21:25)
[2017-04-01] MEDS: NICOTINE PATCH 21 MG TD SCH (09:47)
[2017-04-01] MEDS: POLYETHYLENE GLYCOL 3350 17 GM PCKT PO SCH (09:47)
--- NOTE | 2017-04-01 11:14 | PN ---
DATE: 03/31/17 SUPERVISING PHYSICIAN: Florencio Farley M.D. SUBJECTIVE: The patient is showing slow clinical response despite additional antibiotic coverage with Cefepime. She continues to have some lower extremity edema and there are concerns for a possible fluid overload secondary to aggressive IV therapy initially on admission. I discussed giving the patient some Lasix today. She has not had any chest pain but continues to have significant shortness of breath and a very productive cough. She has continued to be afebrile. The patient continues to have some constipation issues. Have discussed trying Colace and some suppositories and if not, going to an enema. OBJECTIVE: VITAL SIGNS: T max temperature 98.4, pulse 95, blood pressure 136/74 , respirations 24, saturation 94% on nasal cannula at 2 liters at rest. I's and O's show a positive balance of 1755 with 2030 in, 275 out. Weight is 64.8 kg which is actually down from previous of 65.4 kg. CHEST: Lung continue to be diminished throughout with some faint rhonchi heard bilaterally in the posterior bases. HEART: Regular rate and rhythm. ABDOMEN: Obese but soft, non- tender. Positive bowel sounds. EXTREMITIES: She continues with 1+ pitting edema to the lower extremities bilaterally. NEUROLOGIC: She is alert and oriented times three. LABORATORY: White count is showing persistent elevation at 19,200. Hemoglobin 9.5, hematocrit 28.3. Platelet count 402,000, differential shows continued left shift. Chemistries show a low sodium at 127, potassium 4.5, BUN 17, creatinine 1.14. Glucose 70. Calcium 8.5. RADIOLOGY: Chest x-ray today per radiology interpretation of 2-view chest shows continued patchy consolidative changes through the bilateral lungs, minimally improved with a small to moderate right and small left pleural effusion that appear to be stable. There is no pneumothorax. No noted cardiomegaly. ASSESSMENT: 1. Acute exacerbation of chronic obstructive pulmonary disease with bilateral pneumonia with left upper lobe infiltrate continuing to show slow clinical improvement although radiographic studies show a slight improvement, there are still concerns for a Pseudomonas infection versus atypical pneumonia with patient showing slow response with additional antibiotics to include Cefepime along with current antibiotics to include her Levaquin. There is still concern for a Pseudomonal infection. 2. Hypoxemia on admission secondary to #1 showing slight improvement with aggressive pulmonary hygiene although patient continues to have significant dyspnea with any exertional effort. 3. Acute on chronic bronchitis with concerns for Pseudomonal infection, community acquired showing slow improvement. 4. Uncontrolled diabetes mellitus type 2. 5. Renal insufficiency showing improvement with IV fluids. 6. History of bipolar disorder. 7. Possible gastroparesis secondary to uncontrolled diabetes showing some slight improvement with IV fluids. 8. Constipation. 9. Chronic tobacco abuse. PLAN: Will continue with aggressive pulmonary hygiene today and with the Cefepime and Levaquin. With the patient showing slow improvement radiographically and very minimal improvement clinically today with concerns for possible fluid overload acutely, we will go ahead and try some Lasix; 40 mg and hold off on any steroids at this point. Should she show improvement with Lasix, will continue with some diuresis daily and hold off the Solu-Medrol. However, should she fail to show a significant improvement, we certainly will consider giving a dose of Solu-Medrol. If tomorrow her laboratory repeat continues to show elevated leukocytosis and clinical improvement, consideration for additional change in antibiotics to include maybe Doxycycline to cover for atypicals as well as MRSA along with discontinuing the Cefepime, will continue with Levaquin. Again, will continue to monitor patient closely and repeat laboratory studies and x-rays in the morning. Until then, continue to monitor and teat appropriately. #[id number] [facility]
[2017-04-01] MEDS: CHLORPHENIRAMINE W/HYDROCODONE 5 ML UD PO PRN (15:40)
[2017-04-01] MEDS ORDERED: MAGNESIUM HYDROXIDE 30 ML UD PO ONE (16:28)
[2017-04-01] MEDS: levoFLOXacin 750MG IV 750 MG in PREMIX BAG 1 BAG IVPB SCH (18:27)
--- NOTE | 2017-04-01 18:28 | PN ---
DATE: 04/01/17 SUPERVISING PHYSICIAN: Florencio Farley M.D. SUBJECTIVE: The patient is sitting up in bed. Still has some shortness of breath with exertion. Continues to be very tired and weak, but has no complaints of excessive coughing or wheezing. Denies chest pain, nausea, vomiting, diarrhea. She does complain of constipation and only having a very small bowel movement. OBJECTIVE: VITAL SIGNS: She is afebrile, heart rate 92, blood pressure 146/71, respiratory rate 20, O2 sat is 92% on 4 liters nasal cannula. RESPIRATORY: Diminished breath sounds throughout. No wheezing or crackles noted. CARDIAC: Regular rate and rhythm. GASTROINTESTINAL: Abdomen is soft, nondistended, non- tender. Bowel sounds are positive. EXTREMITIES: No cyanosis, clubbing or edema. NEUROLOGIC: She is awake, alert and oriented times three. LABORATORY: Sodium 126 with potassium 4.3, chloride 94, carbon dioxide 22, BUN 18, creatinine 1.26, calcium 8.3. White count 19.2, hemoglobin 9.3, hematocrit 28.1, neutrophils 87%. Final sputum culture shows no cecy after 48 hours. Her final blood cultures show no growth after 5 days. RADIOLOGY: Chest x-ray shows stable appearance of the chest. All other labs and films have been reviewed via the EMR. ASSESSMENT: 1. Acute exacerbation of chronic obstructive pulmonary disease with bilateral pneumonia with left upper lobe infiltrate continuing to show clinical improvement. There still may be some concerns for Pseudomonas infection versus atypical pneumonia with the patient showing slow response with the additional of antibiotics that include Cefepime as well as Levaquin. 2. Hypoxemia on admission secondary to #1 showing improvement with aggressive pulmonary hygiene although she continues complaints of significant dyspnea with any exertion. 3. Acute on chronic bronchitis with concerns for Pseudomonal infection. 4. Persistent leukocytosis in spite of antibiotic therapy. 5. Uncontrolled diabetes mellitus type 2. 6. Renal insufficiency, improved with IV fluids. 7. History of bipolar disorder. 8. Question gastroparesis secondary to uncontrolled diabetes showing some slight improvement with IV fluids. 9. Constipation. 10. Chronic tobacco abuse. PLAN: We will continue present supportive care including aggressive pulmonary hygiene. I have not added any additional antibiotics at this time and if her leukocytosis persists tomorrow, we may need to add some doxycycline. I will continue her IV Lasix for another day. Tomorrow we will need to change her over to oral Lasix. I also increased her Mucinex and given her a dose of Milk of Magnesia. She also may need some steroids if her dyspnea continues to persist. She will need a followup with her primary care physician as well as Infectious Diseases if her leukocytosis does not improve drastically over the next few days. Continue to encourage good pulmonary hygiene. We discussed smoking cessation at length again and will continue to monitor the patient closely and follow as needed. Dr. Farley is the collaborating physician available for consultation. #[id number] HOSPITALEdie
[2017-04-01] MEDS: guaiFENesin ER TAB 600 MG TAB PO SCH (21:23)
[2017-04-01] MEDS: ENOXAPARIN SODIUM 40 MG/0.4 ML SYG SUBCU SCH (21:23)
[2017-04-01] MEDS: traZODone HCL 50 MG TAB PO SCH (21:24)
[2017-04-02] MEDS: ALPRAZolam 0.25 MG TAB PO PRN (01:29)
[2017-04-02] MEDS: CHLORPHENIRAMINE W/HYDROCODONE 5 ML UD PO PRN (03:41)
[2017-04-02] MEDS ORDERED: SODIUM CHL 0.9% 50ML MIN-BAG+ 50 ML IVPB ONE ×3 (06:00→20:07)
[2017-04-02] MEDS ORDERED: CEFEPIME 2 GM VIAL IVPB ONE ×3 (06:01→20:08)
[2017-04-02] MEDS: CEFEPIME 2 GM in SODIUM CHL 0.9% 50ML MIN-BAG+ 50 ML IVPB SCH ×3 (06:02→21:42)
[2017-04-02] MEDS ORDERED: ALBUTEROL SULFATE 2.5 MG/3 ML VIAL NEB PRN (06:52)
[2017-04-02] MEDS: INSULIN LISPRO 100 UNITS/ML PEN SUBCU SCH ×4 (08:00→21:32)
[2017-04-02] MEDS: IPRATROPIUM/ALBUTEROL 3 ML VIAL INH SCH (08:40)
[2017-04-02] MEDS: FLUoxetine HCL 20 MG CAP PO SCH (10:17)
[2017-04-02] MEDS: NICOTINE PATCH 21 MG TD SCH (10:17)
[2017-04-02] MEDS: DOCUSATE SODIUM 100 MG CAP PO SCH ×2 (10:17→21:31)
[2017-04-02] MEDS: INSULIN DETEMIR 100 UNITS/ML PEN SUBCU SCH (10:17)
[2017-04-02] MEDS: SODIUM CHLORIDE 0.9% (FLUSH) 10 ML SYG IV SCH ×2 (10:17→21:32)
[2017-04-02] MEDS: POLYETHYLENE GLYCOL 3350 17 GM PCKT PO SCH (10:18)
[2017-04-02] MEDS: OXcarbazepine 300 MG TAB PO SCH ×3 (10:18→21:31)
[2017-04-02] MEDS: FUROSEMIDE INJ 40 MG/4 ML VIAL IV SCH (10:18)
[2017-04-02] MEDS: LISINOPRIL 10 MG TAB PO SCH (10:18)
[2017-04-02] MEDS: guaiFENesin ER TAB 600 MG TAB PO SCH ×2 (10:18→21:32)
[2017-04-02] MEDS: ALBUTEROL SULFATE 2.5 MG/3 ML VIAL NEB SCH ×3 (12:03→20:00)
[2017-04-02] MEDS: ARFORMOTEROL TARTRATE 15 MCG/2 ML NEB NEB SCH ×2 (12:03→20:00)
[2017-04-02] MEDS ORDERED: MEROPENEM 1 GM in SODIUM CHL 0.9% 50ML MIN-BAG+ 50 ML IVPB SCH (15:00)
[2017-04-02] MEDS ORDERED: methylPREDNISolone SODIUM SUC 125 MG/2 ML VIAL IV ONE (15:27)
[2017-04-02] MEDS: levoFLOXacin 750MG IV 750 MG in PREMIX BAG 1 BAG IVPB SCH (17:49)
[2017-04-02] MEDS: IV SET AND CAP CHANGE INJ INJ SCH (18:04)
--- NOTE | 2017-04-02 18:54 | PN ---
DATE: 04/02/17 SUPERVISING PHYSICIAN: Florencio Farley M.D. SUBJECTIVE: The patient is sitting up in her hospital bed. She complains of extreme weakness and shortness of breath. Denies chest pain, nausea, vomiting or diarrhea. She is concerned about being able to pay her bill and she was on indigent services and asked that she see a Building Manager in regards to that. OBJECTIVE: She is afebrile, heart rate 91, blood pressure 115/67, respiratory rate 20, it had been as high as 24. O2 sats are 91% and have been as low at 89% . RESPIRATORY: Diminished breath sounds throughout, somewhat coarse in the apices. She is mildly tachypneic and can only say short phrases without becoming obviously dyspneic. CARDIAC: Regular rate and rhythm. ABDOMEN: Soft, nondistended, non-tender. Bowel sounds are positive. EXTREMITIES: No cyanosis , clubbing or edema. NEUROLOGIC: She is awake, alert and oriented times three. LABORATORY: WBCs have gone up to 23,400 with hemoglobin 8.7, hematocrit 26.1, neutrophils 88%. Blood sugars have run between 145 and 239. Sodium 124, potassium 4.6, chloride 92, BUN 25, creatinine 1.4, calcium 8.2. Blood gas shows PCO2 of 33, PO2 of 68, bicarb 22.6, O2 saturation 94.7%. Final blood cultures show no growth after 5 days. Final sputum culture shows normal cecy. All other labs and films have been reviewed via the EMR. ASSESSMENT: 1. Acute exacerbation of chronic obstructive pulmonary disease. On admission there were concerns for bilateral pneumonia with left upper lobe infiltrate. Clinically and per chest x-ray that has improved. She is presently on Cefipime as well as Levaquin. 2. Hypoxemia on admission secondary to #1 showing improvement, although clinically she continues to be dyspneic with exertion. 3. Acute on chronic bronchitis with initial concerns for Pseudomonal treated with Cefipime. 4. Persistent leukocytosis in spite of antibiotic therapy. In December 2016, she also had persistent leukocytosis with her WBCs getting as high as 30,000. 5. Uncontrolled diabetes mellitus type 2. 6. Chronic renal insufficiency with a baseline creatinine of 1.5. 7. History of bipolar disorder. 8. Constipation. 9. Question for gastroparesis secondary to her diabetes mellitus that had mostly resolved since admission. PLAN: We will continue present supportive care. I am not quite sure why her WBCs continue to increase in spite of her antibiotic therapy. She has not received any steroids up to this point and her white count continues to increase , although she has had an issue with this in the past. It would probably be beneficial to call Dr. Luna, Infectious Diseases physician, to get her input. I have discontinued her DuoNeb and added scheduled Albuterol, but I have also added Brovana. Initially I thought to put her on some BiPAP but after seeing her ABG we will do BiPAP at night. I have also contacted Theater Education Teacher in regard to going home on oxygen as well as her indigent care. She has received 1 dose of IV steroids to see if that improved her clinically. She will need to see Pulmonary on discharge. Again, we discussed at length smoking cessation and she realizes her prognosis is very poor if she continues to smoke. She will continue with good pulmonary hygiene. We will continue to monitor the patient closely and follow as needed. Dr. Farley is the collaborating physician available for consultation. #[id number] [facility]
[2017-04-02] MEDS ORDERED: ONDANSETRON INJ 4 MG/2 ML VIAL ONE (20:44)
[2017-04-02] MEDS: ONDANSETRON INJ 4 MG/2 ML VIAL IV PRN (20:52)
[2017-04-02] MEDS: traZODone HCL 50 MG TAB PO SCH (21:31)
[2017-04-02] MEDS: ENOXAPARIN SODIUM 40 MG/0.4 ML SYG SUBCU SCH (21:32)
[2017-04-02] MEDS ORDERED: PROMETHAZINE HCL 25 MG TAB PO ONE (23:41)
[2017-04-02] MEDS ORDERED: FUROSEMIDE INJ 40 MG/4 ML VIAL IV ONE (23:45)
[2017-04-03] MEDS ORDERED: SODIUM CHL 0.9% 50ML MIN-BAG+ 50 ML IVPB ONE ×2 (06:06→13:26)
[2017-04-03] MEDS ORDERED: CEFEPIME 2 GM VIAL IVPB ONE ×2 (06:07→13:26)
[2017-04-03] MEDS: CEFEPIME 2 GM in SODIUM CHL 0.9% 50ML MIN-BAG+ 50 ML IVPB SCH ×2 (06:39→13:28)
[2017-04-03] MEDS: INSULIN LISPRO 100 UNITS/ML PEN SUBCU SCH ×4 (08:12→21:01)
[2017-04-03] MEDS: INSULIN DETEMIR 100 UNITS/ML PEN SUBCU SCH ×2 (08:13→21:01)
[2017-04-03] MEDS: ARFORMOTEROL TARTRATE 15 MCG/2 ML NEB NEB SCH ×2 (08:19→20:18)
[2017-04-03] MEDS: ALBUTEROL SULFATE 2.5 MG/3 ML VIAL NEB SCH ×4 (08:19→20:18)
[2017-04-03] MEDS: LISINOPRIL 10 MG TAB PO SCH (10:09)
[2017-04-03] MEDS: OXcarbazepine 300 MG TAB PO SCH ×3 (10:09→20:07)
[2017-04-03] MEDS: FLUoxetine HCL 20 MG CAP PO SCH (10:09)
[2017-04-03] MEDS: NICOTINE PATCH 21 MG TD SCH (10:09)
[2017-04-03] MEDS: DOCUSATE SODIUM 100 MG CAP PO SCH ×2 (10:09→20:07)
[2017-04-03] MEDS: SODIUM CHLORIDE 0.9% (FLUSH) 10 ML SYG IV SCH ×2 (10:10→20:06)
[2017-04-03] MEDS: POLYETHYLENE GLYCOL 3350 17 GM PCKT PO SCH (10:10)
[2017-04-03] MEDS: FUROSEMIDE INJ 40 MG/4 ML VIAL IV SCH ×2 (10:10→17:41)
[2017-04-03] MEDS: guaiFENesin ER TAB 600 MG TAB PO SCH ×2 (10:13→20:07)
--- NOTE | 2017-04-03 11:52 | CT ---
EXAM DESCRIPTION: Chest w/o Contrast : Computed Tomography. CLINICAL HISTORY: pneumonia; Leukocytosis not improving; hypoxic. Decreased renal function-EGFR 33. History of long-term cigarette smoking, recent cessation. COMPARISON: Chest x-ray 04/01/2017. TECHNIQUE: Spiral-axial scans at 5.0 mm mm intervals through the lungs and thorax without IV contrast. 2.5 mm lung algorithm axial reconstructions. Coronal and sagittal 2.0 Mm reconstructions. IV Contrast not given due to decreased renal function. Total Exam DLP: 339.37 mGy-cm. This exam was performed according to our departmental dose-optimization program which includes automated exposure control, adjustment of the mA and/or kV according to patient size and/or use of iterative reconstruction technique; to reduce radiation dose to as low as reasonably achievable (ALARA). FINDINGS: Bilateral pleural effusions greater on the right than the left. Associated with bilateral lower lobe atelectasis more on the right than the left. Bilateral groundglass infiltrates more prominent in the bilateral hilar areas, bilateral apices and also peripheral lung zones right middle lobe lingula bilateral superior segments of the lower lobes. No consolidations with air bronchograms bilaterally. No pneumothorax. Minimal bilateral perihilar peribronchial wall cuffing. Evaluation of the mediastinum and hilum limited due to lack of IV contrast. Bilateral dense breasts. Bilateral subcutaneous emphysema around the chest wall. Coronary artery stents/calcifications. Thoracic aortic calcifications. Minimal spondylosis in the included thoracic spine and the sternal manubrium junction shows mild degenerative changes. No bone destruction. Minimal glenohumeral joint arthrosis bilaterally. Borderline cardiac enlargement. IMPRESSION: 1. Bilateral groundglass opacities and reticular opacities in a mosaic pattern more prominent perihilar mid and upper lung zones, less prominently lower lung zones. No consolidations with air bronchograms. Differential includes discriminative interstitial pneumonia, respiratory bronchiolitis, hypersensitivity pneumonitis, atypical bacterial pneumonia, and nonspecific interstitial pneumonia. Typical bacterial pneumonia is unlikely. 2. Bilateral moderate pleural effusions larger on the right than the left with bilateral lower lobe compression atelectasis. CRITICAL COMMUNICATION: The critical value was discussed directly by phone with Mr. Johnson Zaldivar RN-P, at approximately 1145 hours, on April 03, 2017. Electronically signed by: Fazal Lizama MD 04/03/2017 11:51 AM [employer]
[2017-04-03] MEDS ORDERED: methylPREDNISolone SODIUM SUC 125 MG/2 ML VIAL IV ONE (12:01)
[2017-04-03] MEDS: BIFIDOBACTERIUM INFANTIS 4 MG CAP PO SCH ×2 (12:55→20:07)
[2017-04-03] MEDS: SODIUM CHLORIDE 0.9% (FLUSH) 10 ML SYG IV PRN (12:57)
[2017-04-03] MEDS: methylPREDNISolone SODIUM SUC 125 MG/2 ML VIAL IV SCH (17:42)
--- NOTE | 2017-04-03 18:16 | PN ---
DATE: 04/03/17 SUPERVISING PHYSICIAN: Bart Jules M.D. SUBJECTIVE: The patient is continuing to show slow clinical improvement. She has been afebrile. She does get quite dyspneic with any exertional effort. She has now finished a 5 day course of IV antibiotics. She has had no chest pains, nausea, vomiting or diarrhea. OBJECTIVE: VITAL SIGNS: Temperature 96.5, pulse 97, blood pressure 128/73, respirations 21, satting anywhere from 88 to 94% on nasal cannula with exertion to rest at 6 liters. I's and O's show a negative balance of 270 with 1880 in, 2150 out. Weight is 66.0 kg. CHEST: Lung sounds remain diminished throughout but are somewhat improved from previous days. There is notable crackles and rhonchi heard in the bilateral upper lung owusu. There is no notable wheezing. HEART: Regular rate and rhythm. ABDOMEN: Soft, non-tender. Positive bowel sounds. EXTREMITIES: No clubbing or cyanosis, but there continues to be some pretibial edema bilaterally. NEUROLOGIC: She is alert and oriented times three. LABORATORY: White count continues to be persistently elevated at 21,300 which is improved from previous days. Hemoglobin and hematocrit appear to be fairly stable at 8.6 and 25.9, platelet count is at 381,000. Differential does show a worsening left shift with increased bands at 9. Chemistries show persistent hyponatremia at 123 with potassium 4.7, BUN 31, creatinine 1.7, glucose 145 to 305, calcium 8.5. MICROBIOLOGY: Sputum culture showed normal cecy at 48 hours. Blood cultures remain negative at 5 days. RADIOLOGY: CT of the chest this morning per radiology interpretation shows bilateral ground glass opacities and reticular opacities in a mosaic pattern more prominent perihilar, mid and upper lung zones, less prominent lower lung zones. No consolidations with air bronchograms. Differential on this would consider discriminative interstitial pneumonia, respiratory bronchiolitis, hypersensitivity pneumonitis, atypical bacterial pneumonia and nonspecific interstitial pneumonia. Typical bacterial pneumonia is unlikely. Bilateral moderate pleural effusions larger on the right than the left with lower lobe compression atelectasis. ASSESSMENT: 1. Acute exacerbation of chronic obstructive pulmonary disease initially on admission thought to be bilateral pneumonia with left upper lobe infiltrate on CT showing to be consistent with a pneumonitis, bronchiolitic process with the patient showing minimal improvement with antibiotics over the last 5 days having been on Levaquin and Cefepime. 2. Hypoxemia persistent secondary to #1 showing very minimal improvement and continuing to show dyspnea on exertion. 3. Bilateral pleural effusions resulting in some compression atelectasis no doubt contributing to hypoxemia and increased respiratory effort responding to Lasix and fluid restrictions with no mention of congestive heart failure. 4. Persistent leukocytosis having been on antibiotic therapy now for 5 days with a history of having leukocytosis in the past as high as 30,000, unsure etiology possibly related to inflammatory response needing close followup and continued workup once stable clinically and after discharge. 5. Uncontrolled diabetes mellitus type 2 exacerbated by corticosteroids. 6. Chronic renal insufficiency with a baseline creatinine of 1.5 showing to be stable. 7. Persistent hyponatremia secondary to ongoing interstitial pneumonitis but showing to be stable. 8. History of bipolar disorder. 9. Constipation showing improvement with medical intervention. 10. Question for gastroparesis secondary to her diabetes mellitus that has since resolved since admission. PLAN: Given the findings on the CT today and the fact that she has been on antibiotics for the last 5 days to include Cefepime and Levaquin, and given the findings of questionable pneumonitis with an interstitial disease process, will start her on high dose corticosteroids with 125 of Solu-Medrol initially and will follow this with 80 every 6 hours for at least 4 doses and reevaluate in the morning. Given that she is having poor control of her diabetes, will continue with sliding scale as well as make sure she is on some long-acting insulin and consider adding some a.c. coverage in addition to her sliding scale. She will be continued on Albuterol treatments as well as Brovana. Will utilize BiPAP as needed, especially at night. She will be continued to be encouraged with smoking cessation. Will clinically reevaluate in the morning and based off her response to high dose corticosteroids, consideration for possible transfer to a higher level of care given the poor progression in her clinical status within the last 5 days. Until then, will continue to monitor the patient closely. Repeat laboratory studies in the morning as well as an x- ray. Once clinically stable enough to be discharged, she will certainly need to have close clinical followup in regards to her anemia. She will need Pulmonology services at some point as well as cardiovascular workup. She will need to pursue her followups through Dr. Millan in the [facility] until she can establish with some financial assistance. Again, until discharge will continue to monitor and treat appropriately. #[id number] [facility]
[2017-04-03] MEDS: ONDANSETRON INJ 4 MG/2 ML VIAL IV PRN (18:30)
[2017-04-03] MEDS ORDERED: PROMETHAZINE HCL INJ 12.5 MG in SODIUM CHLORIDE 0.9% 50ML 50 ML IVPB PRN (19:09)
[2017-04-03] MEDS ORDERED: SODIUM CHLORIDE 0.9% 50ML 50 ML ONE (19:11)
[2017-04-03] MEDS ORDERED: PROMETHAZINE HCL INJ 25 MG/ML VIAL ONE (19:11)
[2017-04-03] MEDS ORDERED: PANTOPRAZOLE SODIUM IV 40 MG VIAL IV SCH (19:30)
[2017-04-03] MEDS: traZODone HCL 50 MG TAB PO SCH (20:07)
[2017-04-03] MEDS: ENOXAPARIN SODIUM 40 MG/0.4 ML SYG SUBCU SCH (20:21)
[2017-04-04] MEDS: methylPREDNISolone SODIUM SUC 125 MG/2 ML VIAL IV SCH ×5 (00:26→23:41)
[2017-04-04] MEDS: INSULIN LISPRO 100 UNITS/ML PEN SUBCU SCH ×7 (07:41→21:23)
[2017-04-04] MEDS: ALBUTEROL SULFATE 2.5 MG/3 ML VIAL NEB SCH ×4 (08:30→20:34)
[2017-04-04] MEDS: ARFORMOTEROL TARTRATE 15 MCG/2 ML NEB NEB SCH ×2 (08:30→20:34)
[2017-04-04] MEDS: NICOTINE PATCH 21 MG TD SCH (09:21)
[2017-04-04] MEDS: DOCUSATE SODIUM 100 MG CAP PO SCH ×2 (09:22→20:29)
[2017-04-04] MEDS: OXcarbazepine 300 MG TAB PO SCH ×3 (09:22→20:29)
[2017-04-04] MEDS: FUROSEMIDE INJ 40 MG/4 ML VIAL IV SCH ×3 (09:22→17:49)
[2017-04-04] MEDS: guaiFENesin ER TAB 600 MG TAB PO SCH ×2 (09:22→20:28)
[2017-04-04] MEDS: BIFIDOBACTERIUM INFANTIS 4 MG CAP PO SCH ×2 (09:22→20:29)
[2017-04-04] MEDS: POLYETHYLENE GLYCOL 3350 17 GM PCKT PO SCH (09:22)
[2017-04-04] MEDS: LISINOPRIL 10 MG TAB PO SCH (09:22)
[2017-04-04] MEDS: SODIUM CHLORIDE 0.9% (FLUSH) 10 ML SYG IV SCH ×2 (09:23→20:30)
[2017-04-04] MEDS: FLUoxetine HCL 20 MG CAP PO SCH (09:23)
[2017-04-04] MEDS: INSULIN DETEMIR 100 UNITS/ML PEN SUBCU SCH ×2 (09:25→21:23)
[2017-04-04] MEDS: PANTOPRAZOLE SODIUM TAB 40 MG PO SCH (12:30)
--- NOTE | 2017-04-04 18:01 | PN ---
DATE: 04/04/17 SUPERVISING PHYSICIAN: Bart Jules M.D. SUBJECTIVE: The patient actually has shown some good response to treatments with steroids. Her white count is decreased. She still remains weak but seems to be much more alert and less short of breath. She did wear a BiPAP through the night. She remains afebrile. She is not having a significant amount of coughing as previous nor is she producing as much sputum. OBJECTIVE: VITAL SIGNS: Temperature 97.6, pulse 84, blood pressure 145/79, respirations 22, satting 97% on BiPAP at 35%, 98% on nasal cannula at 5 liters at rest. I's and O's show a negative balance of 1450 with 250 in, 1700 out. Weight 66.0 kg. CHEST: Lung sounds are much more prominent today. No wheezing is noted. She does still have some faint rhonchi heard bilaterally in the apices. HEART: Regular rate and rhythm. ABDOMEN: Soft, non-tender. Positive bowel sounds. EXTREMITIES: Still remain with some pretibial edema bilaterally at trace to 1+. NEUROLOGIC: She is alert and oriented times three. LABORATORY: White count has shown improvement today, it is down to 16,200, hemoglobin is up to 9.1, hematocrit 27.2, platelet count 411,000. Differential continues to show a left shift but decrease in bands. Chemistries show persistent sodium low at 124 with potassium 4.5, BUN 26, creatinine 1.7. Glucoses have been fairly well controlled between 162 and 286 after being started on high dose corticosteroids. Calcium is 9.0. RADIOLOGY: There was no repeat radiographic studies today. ASSESSMENT: 1. Acute exacerbation of chronic obstructive pulmonary disease initially felt to be bilateral pneumonia with left upper lobe infiltrate failing to respond significantly to multiple antibiotic therapies. After CT showed what appears to be a nonspecific interstitial pneumonia, the patient was transitioned to high dose steroids and is showing some improvement, and decrease in her actual white count. 2. Hypoxemia persistent secondary to #1 showing improvement with O2 on nasal cannula and BiPAP at night. 3. Bilateral pleural effusions, uncertain etiology, resulting in some compression atelectasis no doubt contributing to her hypoxemia and increased respiratory effort showing some response to Lasix and fluid restrictions with no history or mention of congestive heart failure. 4. Persistent leukocytosis having failed to respond significantly to antibiotic therapy for 5 days with a past history showing she had leukocytosis in the past up to 30,000 of uncertain etiology possibly secondary to inflammatory response with an underlying interstitial disease process. Continue followup and workup further once stable and discharge as warranted. 5. Poorly controlled diabetes exacerbated by corticosteroids. 6. Chronic renal insufficiency with a baseline creatinine of 1.5 now showing to be stable after IV fluids and diuretic treatments. 7. Persistent hyponatremia secondary to ongoing interstitial disease process and loop diuretic administration but showing to be stable. 8. History of bipolar disorder. 9. Constipation, improved with medical intervention to include enemas and stool softeners. 10. Question of gastroparesis on admission secondary to her diabetes mellitus since resolved. PLAN: With the patient showing good clinical response compared to the last several days after starting on high dose steroids and her white count responding , will continue with high dose corticosteroids of 80 mg every 6 hours for another 24 hours and have since discontinued both the Cefepime and Levaquin. She continues on aggressive bronchial hygiene with DuoNeb treatments and chest percussive therapy. She continues to utilize CPAP at night. I have ordered a Physical Therapy consultation as well as Dietary consultation in efforts to help with her deconditioning and help in strengthening in anticipation of discharge in the next several days. She will have an ambulatory study to further assess her need for O2 once discharged. Will continue with Lasix for an additional day and decrease until p.o. Lasix starting tomorrow. Until discharge, will continue to monitor and treat appropriately. Once discharged, the patient will need to have close followup with Dr. Millan in the family [facility] to assist with followup with pulmonology services to further manage the underlying interstitial disease. #[id number] [facility]
[2017-04-04] MEDS: ALPRAZolam 0.25 MG TAB PO PRN (20:28)
[2017-04-04] MEDS: traZODone HCL 50 MG TAB PO SCH (20:29)
[2017-04-04] MEDS: ENOXAPARIN SODIUM 40 MG/0.4 ML SYG SUBCU SCH (20:29)
[2017-04-05] MEDS: methylPREDNISolone SODIUM SUC 125 MG/2 ML VIAL IV SCH ×4 (06:33→23:42)
[2017-04-05] MEDS: PANTOPRAZOLE SODIUM TAB 40 MG PO SCH (06:35)
--- NOTE | 2017-04-05 07:29 | RAD ---
EXAM: Two view chest. INDICATION: Nonspecific interstitial pneumonia.. COMPARISON: Chest x-ray: 04/01/2017. FINDINGS: There are diffuse interstitial opacities with improvement of the left perihilar airspace opacities. Bilateral pleural effusions are present. The heart size is stable. There is no pneumothorax. IMPRESSION: Diffuse interstitial opacities with improvement of the left perihilar airspace opacities. Electronically signed by: Farhat Eckert MD 04/05/2017 7:28 AM [facility] Workstation: [id number]
[2017-04-05] MEDS: INSULIN LISPRO 100 UNITS/ML PEN SUBCU SCH ×7 (07:39→21:50)
[2017-04-05] MEDS: ALBUTEROL SULFATE 2.5 MG/3 ML VIAL NEB SCH ×4 (07:58→21:08)
[2017-04-05] MEDS: ARFORMOTEROL TARTRATE 15 MCG/2 ML NEB NEB SCH ×2 (07:58→21:08)
[2017-04-05] MEDS: guaiFENesin ER TAB 600 MG TAB PO SCH ×2 (08:59→21:30)
[2017-04-05] MEDS: DOCUSATE SODIUM 100 MG CAP PO SCH ×2 (08:59→21:44)
[2017-04-05] MEDS: OXcarbazepine 300 MG TAB PO SCH ×3 (08:59→21:30)
[2017-04-05] MEDS: NICOTINE PATCH 21 MG TD SCH (08:59)
[2017-04-05] MEDS: FLUoxetine HCL 20 MG CAP PO SCH (08:59)
[2017-04-05] MEDS: LISINOPRIL 10 MG TAB PO SCH (08:59)
[2017-04-05] MEDS: BIFIDOBACTERIUM INFANTIS 4 MG CAP PO SCH ×2 (08:59→21:44)
[2017-04-05] MEDS: SODIUM CHLORIDE 0.9% (FLUSH) 10 ML SYG IV SCH ×2 (09:00→21:30)
[2017-04-05] MEDS: INSULIN DETEMIR 100 UNITS/ML PEN SUBCU SCH ×2 (09:01→21:49)
[2017-04-05] MEDS ORDERED: FUROSEMIDE 40 MG TAB ONE (09:05)
[2017-04-05] MEDS: POLYETHYLENE GLYCOL 3350 17 GM PCKT PO SCH (09:24)
[2017-04-05] MEDS: FUROSEMIDE 40 MG TAB PO SCH (09:24)
[2017-04-05] MEDS: FUROSEMIDE INJ 40 MG/4 ML VIAL IV SCH ×2 (10:16)
[2017-04-05] MEDS ORDERED: MAGNESIUM HYDROXIDE 30 ML UD PO ONE (13:41)
--- NOTE | 2017-04-05 14:30 | PN ---
SUPERVISING PHYSICIAN: Bart Jules MD DATE: 04/05/17 SUBJECTIVE: The patient has shown some clinical response today to treatment with steroids. She is requiring less supplemental oxygen and able to maintain O2 sats with 2.5 liters nasal cannula. She continues to use BiPAP which is working well. She has been afebrile now for 48 hours and has had a significant decrease in her coughing. It was noted this morning on her x-rays that her x- rays have shown some improvement as well. OBJECTIVE: VITAL SIGNS: Temperature 97. Pulse 72. Blood pressure 124/76. Respirations 18. Saturation 96% on 2.5 liter nasal cannula at rest. I&Os show negative balance of 1610 with 440 in, 2050 out. Weight 67.1 kg. CHEST: Lungs are continuing to show better aeration today with breath sounds heard more distally in the bases than previous days. There is no significant wheezing. She does still continue to have a faint area of rhonchi that is heard now in the left upper apices. HEART: Regular rate and rhythm. ABDOMEN: Soft, nontender. Positive bowel sounds. EXTREMITIES: Trace edema to the lower extremities. NEUROLOGIC: Alert and oriented times three. LABORATORY: White count is down from previous days, but is being persistently elevated. It is now 16,600 with hemoglobin 8.2, hematocrit 24.5, platelet count 411,000, differential shows continued left shift. Chemistries show persistent hyponatremia at 125 sodium, potassium 4.1, BUN 38, creatinine 1.71. Glucoses have been in the mid-200s, 215 to 286. She continues to be on corticosteroids. Liver functions are within normal limits except for an alkaline phosphatase elevated at 183. Albumin 2.1. MICROBIOLOGY: Blood cultures remain negative after 5 days. RADIOLOGY: Two view chest x-ray per radiologic interpretation shows diffuse interstitial opacities with improvement of the left perihilar airspace opacities. ASSESSMENT: 1. Acute exacerbation of chronic obstructive pulmonary disease initially treated as bilateral pneumonia with left upper lobe infiltrate failing to respond to multiple antibiotic therapies. After CT showed what appears to be a nonspecific interstitial pneumonia, the patient was transitioned to high dose steroids and and stopped as far as antibiotic therapy and showing good improvement with a decrease in her white count with improvement radiographically and clinically. 2. Hypoxemia, persistent, secondary to #1, but showing improvement and requiring less supplemental oxygen with O2 on nasal cannula and continued BiPAP at night. 3. Bilateral pleural effusions, uncertain etiology, resulting in some compression atelectasis no doubt contributing to her hypoxemia and increased respiratory effort, showing good improvement with Lasix and fluid restrictions with no history or mention of congestive heart failure. 4. Persistent leukocytosis having failed to respond significantly to antibiotic therapy for 5 days with a past history showing she has chronic leukocytosis elevated as high as 30,000 of uncertain etiology at this point, possibly secondary to inflammatory response with an underlying interstitial lung disease process. Continue followup and workup further once stable and discharge as warranted. 5. Poorly controlled diabetes exacerbated by corticosteroid therapy. 6. Chronic renal insufficiency with a baseline creatinine of 1.5, now stable after IV fluids and diuretic treatments. 7. Persistent hyponatremia secondary to ongoing interstitial lung disease and loop diuretic administration, but showing to be stable. 8. History of bipolar disorder. 9. Constipation, improved with medical intervention to include enemas and stool softeners. 10. Question of gastroparesis on admission secondary to her diabetes mellitus, resolved. PLAN: Hopefully we will be able to discharge the patient in the next 24 to 48 hours. I have ordered ambulation study to assess her need for O2 at home. I have discussed with Shaista seeking a provider of her O2 given her financial difficulties. She is currently working with [facility] to see if they have a program that will allow her to get home oxygen. She remains on steroids with 80 mg q.6h. with her last dose having been at 12:30 today. We will continue with Solu-Medrol decreased to 60 mg q.6h. for an additional 4 doses and titrate down to p.o. prednisone. I have ordered ambulation studies along with PT to assess oxygen and physical therapy needs as she continues to show some weakness and exertional dyspnea. I have transitioned her to p.o. Lasix 20 mg daily and she remains no strict I&Os of 1500 mL or less. She still continued to have some issues with constipation. She has Colace scheduled and MiraLAX along with p.r.n. Milk of Magnesia. Again, hopefully we will be able to discharge tomorrow or Monday and depending on her needs at home either on or off oxygen and given her difficulties financially, certainly will need to followup with Dr. Millan at [facility] as well as considerations for medication regimen once home utilizing hopefully the [employer] $4 list along with samples as we can. I have talked to her at length about the need for a pulmonology consultation in the future, however, she is unable to do so right now given her lack of financial coverage. I did discuss with her Dr. Millan's ability to help her successfully secure insurance to assist with further specialty management. I have encouraged her to ambulate in efforts to increase her endurance, but with oxygen until she shows she is maintaining at least 90% to 92% on room air with exertion. Until discharge, we will continue to monitor the patient closely and treat appropriately. [facility][id number] [facility]
[2017-04-05] MEDS: IV SET AND CAP CHANGE INJ INJ SCH (18:03)
[2017-04-05] MEDS: ENOXAPARIN SODIUM 40 MG/0.4 ML SYG SUBCU SCH (21:44)
[2017-04-05] MEDS: traZODone HCL 50 MG TAB PO SCH (21:44)
[2017-04-05] MEDS: MAGNESIUM HYDROXIDE 30 ML UD PO SCH (21:47)
[2017-04-06] MEDS: PANTOPRAZOLE SODIUM TAB 40 MG PO SCH (06:00)
[2017-04-06] MEDS: methylPREDNISolone SODIUM SUC 125 MG/2 ML VIAL IV SCH (06:00)
--- NOTE | 2017-04-06 07:48 | RAD ---
EXAM DESCRIPTION: Chest,2 Views CLINICAL HISTORY: interstial [place] COMPARISON: April 05, 2017 FINDINGS: Two-view chest x-ray shows cardiomediastinal silhouette and pulmonary vasculature to be within normal limits. The lungs are normally aerated. Diffuse interstitial nodular thickening throughout the lungs is mildly improved compared to previous exam. There is blunting of the costophrenic angles right greater than left similar to previous exam. No pneumothorax. Mild degenerative changes of the spine are seen. IMPRESSION: Small right greater than left pleural effusions are stable. Diffuse interstitial opacities appear mildly improved compared to previous. Electronically signed by: Blu Hoyos MD 04/06/2017 7:47 AM [employer]
[2017-04-06] MEDS: INSULIN LISPRO 100 UNITS/ML PEN SUBCU SCH ×7 (08:06→22:18)
[2017-04-06] MEDS: ALBUTEROL SULFATE 2.5 MG/3 ML VIAL NEB SCH ×4 (08:46→20:10)
[2017-04-06] MEDS: ARFORMOTEROL TARTRATE 15 MCG/2 ML NEB NEB SCH ×2 (08:46→20:10)
[2017-04-06] MEDS: FUROSEMIDE 40 MG TAB PO SCH (09:20)
[2017-04-06] MEDS: POLYETHYLENE GLYCOL 3350 17 GM PCKT PO SCH (09:20)
[2017-04-06] MEDS: guaiFENesin ER TAB 600 MG TAB PO SCH ×2 (09:21→20:36)
[2017-04-06] MEDS: LISINOPRIL 10 MG TAB PO SCH (09:21)
[2017-04-06] MEDS: FLUoxetine HCL 20 MG CAP PO SCH (09:21)
[2017-04-06] MEDS: DOCUSATE SODIUM 100 MG CAP PO SCH ×2 (09:21→22:19)
[2017-04-06] MEDS: BIFIDOBACTERIUM INFANTIS 4 MG CAP PO SCH ×2 (09:21→20:36)
[2017-04-06] MEDS: NICOTINE PATCH 21 MG TD SCH (09:22)
[2017-04-06] MEDS: OXcarbazepine 300 MG TAB PO SCH ×3 (09:22→20:36)
[2017-04-06] MEDS: SODIUM CHLORIDE 0.9% (FLUSH) 10 ML SYG IV SCH ×2 (09:23→22:19)
[2017-04-06] MEDS: INSULIN DETEMIR 100 UNITS/ML PEN SUBCU SCH ×2 (09:23→22:18)
[2017-04-06] MEDS ORDERED: predniSONE 20 MG TAB ONE (09:43)
[2017-04-06] MEDS: METOPROLOL TARTRATE 25 MG TAB PO SCH ×2 (10:37→16:52)
[2017-04-06] MEDS: predniSONE 20 MG TAB PO SCH (11:56)
[2017-04-06] MEDS ORDERED: SODIUM CHLORIDE 0.9% 1000ML 1,000 ML IVS ONE (15:14)
--- NOTE | 2017-04-06 18:53 | PN ---
DATE: 04/06/17 SUPERVISING PHYSICIAN: Bart Jules M.D. SUBJECTIVE: The patient is sitting up in her chair in her room. No complaints of chest pain, nausea, vomiting, diarrhea or constipation. Continues complaints of shortness of breath with exertion, but it helps when she has her oxygen on. OBJECTIVE: VITAL SIGNS: She is afebrile, heart rate 88, blood pressure 138/71, respiratory rate 16, O2 sat is 93%. RESPIRATORY: Diminished breath sounds throughout but no wheezing or crackles noted. CARDIAC: Regular rate and rhythm. ABDOMEN: Soft, nondistended, non-tender. Bowel sounds are positive. EXTREMITIES: Trace of pedal edema bilaterally. No cyanosis or clubbing. NEUROLOGIC: She is awake, alert and oriented times three. LABORATORY: Her white count is down to 12.8 and hemoglobin is 8.7, hematocrit 26.6, neutrophils 90. 1. Blood sugars have been running between 289 and 327. Sodium is 124, her corrected sodium is 128, potassium 4.7, chloride 88, carbon dioxide 27, BUN 38, creatinine 1.45. RADIOLOGY: Chest x-ray shows small right greater than left pleural effusions that are stable and diffuse interstitial opacities appear mildly improved compared to previous. All other labs and films have been reviewed via the EMR. ASSESSMENT: 1. Acute exacerbation of chronic obstructive pulmonary disease initially treated as bilateral pneumonia with left upper lobe infiltrate failing to respond to multiple antibiotic therapies. After CT showed what appears to be a nonspecific interstitial pneumonia, the patient was transitioned to high dose steroids and and stopped as far as antibiotic therapy and showing good improvement with a decrease in her white count with improvement radiographically and clinically. 2. Hypoxemia, persistent, secondary to #1, but showing improvement and requiring less supplemental oxygen with O2 on nasal cannula and continued BiPAP at night. 3. Bilateral pleural effusions, uncertain etiology, resulting in some compression atelectasis no doubt contributing to her hypoxemia and increased respiratory effort, showing good improvement with Lasix and fluid restrictions with no history or mention of congestive heart failure. 4. Persistent leukocytosis having failed to respond significantly to antibiotic therapy for 5 days with a past history showing she has chronic leukocytosis elevated as high as 30,000 of uncertain etiology at this point, possibly secondary to inflammatory response with an underlying interstitial lung disease process. Continue followup and workup further once stable and discharge as warranted. 5. Poorly controlled diabetes exacerbated by corticosteroid therapy. 6. Chronic renal insufficiency with a baseline creatinine of 1.5, now stable after IV fluids and diuretic treatments. 7. Persistent hyponatremia secondary to ongoing interstitial lung disease and loop diuretic administration, but showing to be stable. 8. History of bipolar disorder. 9. Constipation, improved with medical intervention to include enemas and stool softeners. 10. Question of gastroparesis on admission secondary to her diabetes mellitus, resolved. PLAN: We will continue present supportive care. Her white count has improved greatly overnight and I will recheck it in the morning. Will continue to stress the need for fluid restrictions. I have talked to Dr. Millan's office and he will see her next week. We are in the process of helping her get [employer] for oxygen to go home as I don't believe she can go home without oxygen and breathing treatments, otherwise she will be back in the Emergency Room. She needs a tobacco wetter at some point as well as to see a can dryer because she needs an echocardiogram done. Her blood pressure has been running a little bit on the high side. She has been on an Gen inhibitor and I have added a very low dose of a beta arlet. Hopefully we can get all of her oxygen and Jania [facility] in place for tomorrow and she can be discharged home with very close followup with Dr. Millan. Otherwise we will continue to monitor the patient closely and follow as needed. Dr. Jules is the collaborating physician available for consultation. [facility][id number] [facility]
[2017-04-06] MEDS: traZODone HCL 50 MG TAB PO SCH (20:36)
[2017-04-06] MEDS: MAGNESIUM HYDROXIDE 30 ML UD PO SCH (20:36)
[2017-04-06] MEDS: ENOXAPARIN SODIUM 40 MG/0.4 ML SYG SUBCU SCH (20:36)
[2017-04-07] MEDS: PANTOPRAZOLE SODIUM TAB 40 MG PO SCH (05:51)
[2017-04-07] MEDS: INSULIN LISPRO 100 UNITS/ML PEN SUBCU SCH ×8 (07:48→21:26)
[2017-04-07] MEDS: METOPROLOL TARTRATE 25 MG TAB PO SCH ×2 (07:55→17:11)
[2017-04-07] MEDS ORDERED: INSULIN DETEMIR 100 UNITS/ML PEN SUBCU SCH (08:45)
[2017-04-07] MEDS ORDERED: INSULIN LISPRO 100 UNITS/ML PEN SUBCU ONE (08:57)
[2017-04-07] MEDS: ALBUTEROL SULFATE 2.5 MG/3 ML VIAL NEB SCH ×3 (09:18→19:40)
[2017-04-07] MEDS: ARFORMOTEROL TARTRATE 15 MCG/2 ML NEB NEB SCH ×2 (09:18→19:40)
[2017-04-07] MEDS: INSULIN DETEMIR 100 UNITS/ML PEN SUBCU SCH (09:20)
[2017-04-07] MEDS: POLYETHYLENE GLYCOL 3350 17 GM PCKT PO SCH (09:27)
[2017-04-07] MEDS: SODIUM CHLORIDE 0.9% (FLUSH) 10 ML SYG IV SCH ×2 (09:27→21:26)
[2017-04-07] MEDS: OXcarbazepine 300 MG TAB PO SCH ×3 (09:27→21:23)
[2017-04-07] MEDS: guaiFENesin ER TAB 600 MG TAB PO SCH ×2 (09:27→21:23)
[2017-04-07] MEDS: predniSONE 20 MG TAB PO SCH (09:27)
[2017-04-07] MEDS: FLUoxetine HCL 20 MG CAP PO SCH (09:28)
[2017-04-07] MEDS: FUROSEMIDE 40 MG TAB PO SCH (09:28)
[2017-04-07] MEDS: DOCUSATE SODIUM 100 MG CAP PO SCH ×2 (09:28→21:24)
[2017-04-07] MEDS: LISINOPRIL 10 MG TAB PO SCH (09:28)
[2017-04-07] MEDS: BIFIDOBACTERIUM INFANTIS 4 MG CAP PO SCH ×2 (09:28→21:24)
[2017-04-07] MEDS: NICOTINE PATCH 21 MG TD SCH (09:28)
[2017-04-07] MEDS: MAGNESIUM HYDROXIDE 30 ML UD PO SCH (21:22)
[2017-04-07] MEDS: traZODone HCL 50 MG TAB PO SCH (21:23)
[2017-04-07] MEDS: ENOXAPARIN SODIUM 40 MG/0.4 ML SYG SUBCU SCH (21:24)
[2017-04-08] MEDS: PANTOPRAZOLE SODIUM TAB 40 MG PO SCH (06:35)
[2017-04-08] MEDS: INSULIN LISPRO 100 UNITS/ML PEN SUBCU SCH ×4 (07:47→12:14)
[2017-04-08] MEDS: METOPROLOL TARTRATE 25 MG TAB PO SCH (07:48)
[2017-04-08] MEDS: ALBUTEROL SULFATE 2.5 MG/3 ML VIAL NEB SCH ×2 (08:09→11:20)
[2017-04-08] MEDS: ARFORMOTEROL TARTRATE 15 MCG/2 ML NEB NEB SCH (08:09)
[2017-04-08] MEDS: LISINOPRIL 10 MG TAB PO SCH (08:57)
[2017-04-08] MEDS: FUROSEMIDE 40 MG TAB PO SCH (08:57)
[2017-04-08] MEDS: BIFIDOBACTERIUM INFANTIS 4 MG CAP PO SCH (08:57)
[2017-04-08] MEDS: DOCUSATE SODIUM 100 MG CAP PO SCH (08:57)
[2017-04-08] MEDS: OXcarbazepine 300 MG TAB PO SCH ×2 (08:57→14:31)
[2017-04-08] MEDS: predniSONE 20 MG TAB PO SCH (08:57)
[2017-04-08] MEDS: guaiFENesin ER TAB 600 MG TAB PO SCH (08:57)
[2017-04-08] MEDS: POLYETHYLENE GLYCOL 3350 17 GM PCKT PO SCH (08:57)
[2017-04-08] MEDS: NICOTINE PATCH 21 MG TD SCH (08:58)
[2017-04-08] MEDS: FLUoxetine HCL 20 MG CAP PO SCH (08:58)
[2017-04-08] MEDS: INSULIN DETEMIR 100 UNITS/ML PEN SUBCU SCH (08:58)
[2017-04-08] MEDS: SODIUM CHLORIDE 0.9% (FLUSH) 10 ML SYG IV SCH (08:58)
--- NOTE | 2017-04-08 10:08 | PN ---
DATE: 04/07/17 SUPERVISING PHYSICIAN: Bart Jules M.D. SUBJECTIVE: The patient is sitting up in her bed, She continues complaints of shortness of breath and is very worried about going home. We discussed at length getting oxygen for her at home as well as breathing treatments and her steroids. She is contacting her family to help her with those discharge plans.. OBJECTIVE: VITAL SIGNS: She is afebrile, heart rate 84, blood pressure 137/72, respiratory rate 20, O2 saturation is 92% on two liters nasal cannula. RESPIRATORY: Diminished breath sounds throughout, no wheezing or crackles noted. CARDIAC: Regular rate and rhythm. EXTREMITIES: She has some trace of pedal edema bilaterally. NEUROLOGIC: She is awake, alert and oriented times three. LABORATORY: Her white blood count is 13. Hemoglobin is 8.5, hematocrit 25.8. Platelet count is 408,000. Blood sugars have gone as low as 124 and her SI at 350. There are no other labs or films to report at this time. ASSESSMENT: 1. Acute exacerbation of chronic obstructive pulmonary disease initially treated as bilateral pneumonia with left upper lobe infiltrate failing to respond to multiple antibiotic therapies. After CT showed what appears to be a nonspecific interstitial pneumonia, the patient was transitioned to high dose steroids and and stopped as far as antibiotic therapy and showing good improvement with a decrease in her white count with improvement radiographically and clinically. 2. Hypoxemia, persistent, secondary to #1, but showing improvement and requiring less supplemental oxygen with O2 on nasal cannula and continued BiPAP at night. 3. Bilateral pleural effusions, uncertain etiology, resulting in some compression atelectasis no doubt contributing to her hypoxemia and increased respiratory effort, showing good improvement with Lasix and fluid restrictions with no history or mention of congestive heart failure. 4. Persistent leukocytosis having failed to respond significantly to antibiotic therapy for 5 days with a past history showing she has chronic leukocytosis elevated as high as 30,000 of uncertain etiology at this point, possibly secondary to inflammatory response with an underlying interstitial lung disease process. Continue followup and workup further once stable and discharge as warranted. 5. Poorly controlled diabetes exacerbated by corticosteroid therapy. 6. Chronic renal insufficiency with a baseline creatinine of 1.5, now stable after IV fluids and diuretic treatments. 7. Persistent hyponatremia secondary to ongoing interstitial lung disease and loop diuretic administration, but showing to be stable. 8. History of bipolar disorder. 9. Constipation, improved with medical intervention to include enemas and stool softeners. 10. Question of gastroparesis on admission secondary to her diabetes mellitus, resolved. PLAN: We will continue present supportive care. Shaista Silva continues to work with medical supplies to get her home oxygen. Again, I am afraid if she goes home without any oxygen she will just be marguerite in the hospital. Her family is attempting to come up with the money and we will at least try to get her Brovana and albuterol samples but she will need to go get her prednisolone and she will have close followup with Dr. Millan at [facility] on Monday. At that point, she will need to have a photographic spotter as well as pulmonology followup. Shantal Loco, Link Trainer Mechanic, at [facility] has been informed about the patient's financial situation and she is helping with the paper work to get her indigent care taken care of. Hopefully, she can be discharged tomorrow. Otherwise, we will continue to monitor and followup as needed. Dr. Jules is the collaborating physician available for consultation. #[id number] [facility]
[2017-04-08 10:16] VITALS: BP 136/70; TEMP 96.7
[2017-04-08 12:56] VITALS: O2SAT 96
--- NOTE | 2017-04-09 13:15 | DS ---
SUPERVISING PHYSICIAN: Bart Jules M.D. DISCHARGE DIAGNOSIS: 1. Acute exacerbation of chronic obstructive pulmonary disease initially treated as bilateral pneumonia with left upper lobe infiltrate failing to respond to multiple antibiotic therapies. CT showed after treatment failure what appeared to be a nonspecific interstitial pneumonia, the patient was transitioned to high dose steroids. Antibiotics were stopped and she showed good improvement both with a decrease in her white count and improvement in radiographic films and clinically. 2. Hypoxemia, persistent, secondary to #1, but showing improvement but continues to require supplemental oxygen with ambulation and BiPAP at night with suggestion of a possible sleep study at some point. 3. Bilateral pleural effusions, uncertain etiology, resulting in some compression atelectasis no doubt contributing to her hypoxemia initially increased respiratory effort, showing good improvement with diuretics and fluid restrictions with no history or mention of congestive heart failure. 4. Persistent leukocytosis having failed to respond significantly to antibiotic therapy for 5 days after admission with the patient having a history of chronic leukocytosis elevated up to 30,000 of uncertain etiology at that point with the patient being changed to steroids as it was felt that she was possibly having a a secondary response to inflammatory changes due to interstitial lung disease process. She will need continued followup closely in the clinic as well as pulmonology and hematology if possible. 5. Poorly controlled diabetes exacerbated by corticosteroid therapy. 6. Chronic renal insufficiency with a baseline creatinine of 1.5 showing to be stable after IV fluids and diuretic treatments. 7. Persistent hyponatremia secondary to ongoing interstitial lung disease and loop diuretic administration, but showing to be stable. 8. History of bipolar disorder. 9. Constipation, improved with medical intervention to include enemas and stool softeners. 10. Question of gastroparesis on admission secondary to her diabetes mellitus, resolved after initiation of insulin therapy and IV fluids. REASON FOR HOSPITALIZATION: Ms. Sinclair is a 57 year-old female patient with a history of heavy smoking as well as type 1 diabetes and a history of pneumonia in the past. She noted on date of admission that for 2 weeks or so she had been having a cough which has progressively gotten a little bit worse. It is also productive with holly colored sputum. She does state she has smoked less since she has been sick. Her coughs were so hard and severe that it makes her nearly pass out. She was seen in the Emergency Room on the date of admission and was noted to have a white count of 20,000. Chest x-ray per radiology interpretation showed bibasilar pneumonia. ABG was also completed and her PO2 was pretty low along with she was retaining CO2. They gave her Rocephin and azithromycin in the Emergency Room along with nebulizer treatments. She had minimal improvement but given her leukocytosis and bilateral infiltrates as well as hypoxemia, she was referred for admission. She was admitted in stable condition. LABORATORY STUDIES: Initial white count was 23,400, at discharge was 13,000. Hemoglobin on admission was 8.7, hematocrit 26.1, at discharge was stable at 8.5 and 25.8. Her initial white count was 20,100. After initiation of therapy , it did drop somewhat to the low of 16,400, however on the she again showed an increase in her white count and it went up to 23,400. After initiation of antibiotic therapy, she showed minimal improvement and then after again repeat of CT, the treatment plan was modified. She was stopped on the antibiotics and hit with high dose steroids which did show good response with her dropping her white count down to 13,000 prior to discharge. Blood gas analysis on admission showed she was satting 90% on 2 liters nasal cannula with PCO2 of 35, PO2 of 53, bicarb 23, pH of 7.44. On the , a repeat ABG showed that her pH was 7.45 with bicarb 22.6, PO2 was up to 66 and PCO2 was normal at 33. She was satting 94%. Chemistries: She had multiple chemistries completed. Initially her sodium was 134. This did drop down to a low of 123 but had rebounded after treatment up to 129 before discharge. Her potassium had remained within normal limits and at discharge was 4.6. Carbon dioxide as well was within normal limits and at discharge was 27. BUN did elevate after initiation of loop diuretics, at discharge was up to 41. Baseline was 16. Creatinine had gone up to 1.36 from admission of 1.18. Liver functions showed to be within normal limits. Initial lactic acid was 1.2. Hemoglobin initially was 7.7. TSH was normal at 2.59. Serologies that were completed included Legionella urine antigen test which was pending at time of discharge. She did have a C reactive protein that was elevated at 20.9. MICROBIOLOGY: She had 2 sets of blood cultures that remained negative after 5 days. Sputum culture showed normal cecy at 48 hours and she had an Influenza swab by PCR that was both negative for A and B. RADIOLOGY: Initial chest x-ray on admission per radiology interpretation showed no acute cardiopulmonary process. Multiple x-rays were taken and she slowly progressed to show as per radiology interpretation noted patchy consolidations throughout the bilateral lungs. This was slowly improved therefore on 04/03/[address] of the chest was completed without contrast and per radiology interpretation was noted that she had bilateral pleural effusions greater on the right than the left and associated with bilateral lower lobe atelectasis more on the right than the left. She also had bilateral ground glass infiltrates more prominent in the bilateral hilar regions, bilateral apices, also peripheral lung zones, right middle lobe lingula bilateral superior segments of the lower lobes. There was no consolidations with air bronchograms bilaterally. No pneumothorax. Minimal bilateral perihilar bronchial cuffing seen. Mediastinum and hilum were limited due to lack of IV. Bilateral dense breasts. Bilateral subcutaneous emphysema around the chest wall. Also coronary artery stents and calcifications. Thoracic aorta showed calcifications. There was minimal spondylosis within the thoracic spine and there was bilateral borderline cardiac enlargement. Please see that report for full details. After stopping antibiotics and initiation of high dose steroids, she had multiple chest x-rays, last chest x-ray on 04/06/17 per radiology interpretation of two view chest showed small right greater than left pleural effusion, diffuse interstitial opacities appear mildly improved compared to previous exams. HOSPITAL COURSE: Ms. Sinclair was admitted as noted on 03/27/17 for what was thought was bilateral pneumonia. She was treated aggressively with pulmonary hygiene, antibiotics to include initially Rocephin and azithromycin. She was then transitioned to Levaquin due to the fact that she was not progressing well clinically and there was concern possibly that she was having Pseudomonas as the etiology of her pneumonia, therefore she was started on Maxipime. After CT of the chest revealed no evidence of true consolidation and it was felt that this was more of an interstitial process, her antibiotics were discontinued and she was started on Solu-Medrol high dose initially 125 with 80 every 6 hours which was titrated down to prior to discharge which was 40 mg p.o. prednisone. Her blood sugars were fairly erratic secondary to the ongoing corticosteroid therapy. She did require BiPAP at night and was showing the need for oxygen throughout the day. She was showing significant deconditioning, therefore physical therapy consultation was completed and she was started on a physical therapy regimen. On the morning of discharge, it was felt that she had met her goals as well as she had progressed clinically to the point that she could continue with outpatient treatment plan. Arrangements were made for her oxygen at home as well as antibiotic and other medications as required at time of discharge, and she was discharged in stable condition. PLAN: Ms. Sinclair was discharged on 04/08/17 with instructions to have close clinical followup with Dr. Millan as scheduled on 04/12/17 at 1:20 PM. She was to take her new medications as instructed, resume home medications as directed. She was encouraged to watch her blood sugars closely as they were expected to be elevated while taking steroids. She was to use long term care pharmacist acting insulin to include Levemir which she was on previously and she was instructed to use the doses that were utilized while in the hospital until her blood sugars were showing to be returning back to her baseline readings, therefore she could return back to her normal Levemir regimen. She was encouraged to stop smoking. She was instructed to wear her oxygen as directed with the nasal cannula at 2 liters and to not smoke while using any oxygen. She was to return to the hospital if any concerning symptoms. Diet at discharge was diabetic diet. Activity is increase as tolerated with oxygen. MEDICATIONS AT DISCHARGE: 1. Albuterol 2.5 mg every 4 hours as needed, #30. 2. Albuterol 2.5 mg nebulized 4 times a day as scheduled as needed. All samples provided from the clinic. 3. Brovana 15 mcg twice daily, 3 boxes of 8. 4. Lasix 20 mg daily, #30. 5. Lisinopril 20 mg daily, #60. 6. Metoprolol 12.5 mg twice daily, #30. 7. Potassium chloride 10 mEq daily, #30. 8. Prednisone 40 mg daily, #20 tablets, #7. She was given samples for the Brovana and the Albuterol, and had secured a nebulizer machine from a family member. Oxygen was arranged with [facility]. All of her finances were assisted as needed and she was able to attain her medications prior to discharge. As well, she was set up on oxygen. Condition at discharge was stable and improved. #[id number] MTDD
== END 2017-04-08 15:17 | disposition home or self-care (01) | DRG 191 ==
LOC: ER 10:51 → MS 17:13
PROVIDERS: ADMIT Nurse Practitioner; ATTEND Nurse Practitioner Family
DX: J44.1 Chronic obstructive pulmonary disease with (acute) exacerbation (principal); J90 Pleural effusion, not elsewhere classified; J98.11 Atelectasis; J84.9 Interstitial pulmonary disease, unspecified; N17.9 Acute kidney failure, unspecified; E87.1 Hypo-osmolality and hyponatremia; R09.02 Hypoxemia; J20.9 Acute bronchitis, unspecified; J44.0 Chronic obstructive pulmonary disease with (acute) lower respiratory infection; F31.9 Bipolar disorder, unspecified; K31.84 Gastroparesis; B96.5 Pseudomonas (aeruginosa) (mallei) (pseudomallei) as the cause of diseases classified elsewhere; K59.00 Constipation, unspecified; E87.70 Fluid overload, unspecified; D72.829 Elevated white blood cell count, unspecified; I12.9 Hypertensive chronic kidney disease with stage 1 through stage 4 chronic kidney disease, or unspecified chronic kidney disease; N28.9 Disorder of kidney and ureter, unspecified; D64.9 Anemia, unspecified; T38.0X5A Adverse effect of glucocorticoids and synthetic analogues, initial encounter; Y92.230 Patient room in hospital as the place of occurrence of the external cause; T50.1X5A Adverse effect of loop [high-ceiling] diuretics, initial encounter; R53.1 Weakness; F17.210 Nicotine dependence, cigarettes, uncomplicated; E10.65 Type 1 diabetes mellitus with hyperglycemia; E10.43 Type 1 diabetes mellitus with diabetic autonomic (poly)neuropathy; E66.9 Obesity, unspecified; Z99.81 Dependence on supplemental oxygen; Z79.4 Long term (current) use of insulin; Z79.899 Other long term (current) drug therapy; Z68.20 Body mass index [BMI] 20.0-20.9, adult

== ENCOUNTER → 2017-04-25 | Outpatient (CLI) | payer SELFPAY | LOC: YCFC.O 12:21 | DX: J18.9 Pneumonia, unspecified organism (principal); E11.21 Type 2 diabetes mellitus with diabetic nephropathy ==

== ENCOUNTER → 2017-05-09 | Outpatient (CLI) | payer OTHER ==
--- NOTE | 2017-05-09 16:47 | RAD ---
EXAM DESCRIPTION: Cervical Spine,5 Views CLINICAL HISTORY: NECK PN COMPARISON: None Available. TECHNIQUE: AP/lateral/ both oblique/open-mouth odontoid FINDINGS: There is anatomic alignment of the cervical spine. Preservation of the spinal laminar line is seen. Degenerative narrowing of the atlantodens interval is noted. Irregularities at C4-5 are thought to be anterior degenerative spurring. There is no destructive bone lesion or fracture. Oblique view shows narrowing of the left C4-5 neural foramen related to spurring. Right neural foramina are widely patent. Odontoid base appears intact. Lateral margins of C1 and C2 appear normal. There is no soft tissue abnormality identified. IMPRESSION: Negative for fracture. Electronically signed by: Ottoniel Vazquez MD 05/09/2017 4:46 PM [facility]
== END ==
LOC: RAD 11:55
DX: M54.2 Cervicalgia (principal)

== ENCOUNTER → 2017-07-27 | Outpatient (CLI) | payer OTHER ==
--- NOTE | 2017-07-28 16:19 | MAM ---
EXAM DESCRIPTION: 3D Screening BILATERAL : Digital Mammography. CLINICAL HISTORY: 57 years Female ANNUAL SCREENING . No complaints. No family history of breast cancer. Hysterectomy. Has taken HRT 5 or more years ago. COMPARISON: 2-D digital screening bilateral study 05/09/2016.. Report from prior examination also reviewed. TECHNIQUE: Bilateral CC and MLO projection full-field images, 3-D tomosynthesis digital mammographic technique. Also bilateral synthesized CC/ MLO full-field images. CAD not utilized. FINDINGS: The breast parenchymal density pattern is: Extremely dense breast tissue, which lowers the sensitivity of mammography. No skin thickening or nipple retraction skin mole posterior third upper inner quadrant right breast. Bilateral solitary microcalcifications. Small group of calcifications in the retroareolar left breast stable since the prior study. No focal, stellate mass or density, focal asymmetry , and no suspicious microcalcifications bilaterally. Stable mammograms compared to prior study, taking into account differences in mammographic technique IMPRESSION: BI-RADS CATEGORY: 2 - BENIGN FINDINGS. FOLLOW UP: Routine digital bilateral screening, one year interval from July 2017. Written communication explaining the IMPRESSION and follow-up, will be mailed to the patient and referring health care provider. According to the [employer], yearly mammograms are recommended starting at age 40 and continuing as long as a woman is in good health. Any breast change noted on a breast self-exam should be reported promptly to the patient's healthcare provider. Breast MRI is recommended for women with an approximately 20-25% or greater lifetime risk of breast cancer, including women with a strong family history of breast or ovarian cancer and women who have been treated for Hodgkin's disease. A negative mammographic report should not delay tissue diagnosis in patients with significant clinical history or physical findings. Extremely dense breast tissue limits the sensitivity of digital mammography. Electronically signed by: Fazal Lizama MD 07/28/2017 4:18 PM CDT
== END ==
LOC: MAMMO 07:57
DX: Z12.31 Encounter for screening mammogram for malignant neoplasm of breast (principal)

== ENCOUNTER → 2017-10-24 | Outpatient (CLI) | payer OTHER, SELFPAY | LOC: LAB.O 08:20 | PROVIDERS: ATTEND Internal Medicine Nephrology | DX: N18.4 Chronic kidney disease, stage 4 (severe) (principal); E78.5 Hyperlipidemia, unspecified; R06.02 Shortness of breath ==

== ENCOUNTER → 2017-10-26 | Outpatient (CLI) | payer OTHER, SELFPAY | LOC: YCFC.O 10:22 | PROVIDERS: ATTEND Family Medicine | DX: D64.9 Anemia, unspecified (principal) ==

== ENCOUNTER → 2017-11-10 | Outpatient (CLI) | payer OTHER ==
--- NOTE | 2017-11-13 07:17 | CT ---
Procedure: CT LUNG SCREENING Exam Date: 11/10/2017 Ordering Provider: Neri Barrientos Clinical Indication: LUNG CA SCREENING Comparison: 04/03/2017 Technique: Using a multislice scanner, sequential axial imaging was obtained in the thorax from the level of the thoracic inlet through the lung bases without IV contrast. A low dose protocol was utilized. 2D sagittal and coronal reconstructed images were obtained. This exam was performed according to our departmental dose optimization program which includes use of automated exposure control, adjustment of the mA and/or kV according to patient size and/or use of iterative reconstruction technique. FINDINGS: Lungs and large airways: Central airways are patent. No focal lung consolidation. Atelectasis/scarring in the right middle and lower lobes. Paraseptal emphysematous changes. No suspicious lung nodules. Pleura: No pleural effusion. No pneumothorax. Mediastinum and michelle: Evaluation of hilar lymphadenopathy is limited without IV contrast. No mediastinal lymphadenopathy by size criteria. Heart and great vessels: The heart is not enlarged. No pericardial effusion. No aortic aneurysm. Aortic calcification. Coronary artery calcifications. Chest wall, lower neck, axillae: No axillary lymphadenopathy. Upper abdomen: Nonacute Bones: Nonacute IMPRESSION: 1. No suspicious lung nodules. Lung RADS category 1. Negative. Continue annual screening with low-dose CT. Electronically signed by: Nas Briggs MD 11/13/2017 7:16 AM CDT
== END ==
LOC: CT 13:30
PROVIDERS: ATTEND Family Medicine
DX: Z87.891 Personal history of nicotine dependence (principal)

== ENCOUNTER → 2018-11-13 | Outpatient (CLI) | payer OTHER ==
--- NOTE | 2018-11-14 13:52 | CT ---
Procedure: CT LUNG SCREENING Exam Date: 11/13/2018 Ordering Provider: Neri Barrientos Clinical Indication: PERSONAL HISTORY OF TOBACCO USE. Current cigarette smoker. 40 pack years. This patient meets eligibility criteria for low-dose CT lung cancer screening. Comparison: Low-dose CT lung cancer screening examination 11/10/2017. Technique: Using a multislice scanner, sequential helical axial imaging was obtained in the thorax, 2.5 mm thickness, 2.5 mm separation, from the level of the thoracic inlet through the lung bases without IV contrast. A low dose protocol was utilized for BMI less than 30: BMI: 17.6. CTDI: 1.76 mGy. 120. kVp. 45 mA. DLP 65.06 mGy-centimeters. 2D sagittal and coronal reconstructed images, 6.0 mm thickness, were obtained. This exam was performed according to our departmental dose optimization program which includes use of automated exposure control, adjustment of the mA and/or kV according to patient size and/or use of iterative reconstruction technique. Nodule measurements under 10 mm are given as mean value of 3 axes diameters. FINDINGS: Lungs and large airways: Tiny bilateral parenchymal blebs more numerous in the upper lung owusu. Bilateral minimally thickened bronchial lackey. Increased thickening in the superior left horizontal fissure with atelectasis abutting the fissure. Stable atelectasis and parenchymal pleural scarring in the inferior atelectasis, right middle lobe, and right lower lobe with pleural parenchymal scarring increasing in the right lower lobe. Stable 3 mm nodule in the right middle lobe Stable pleural parenchymal scarring in the left lower lobe. New 3 mm subpleural nodule versus cross-section of scar tissue in the lateral aspect of the superior segment of the left lower lobe on CT axial series 2, image 102. Pleura and space: Increased pleural thickening in the lateral and posterior pleura abutting the left upper lobe associated with the increased thickening and density changes in the left upper lobe described above. No calcifications. No pleural effusion or pneumothorax. Mediastinum and michelle: evaluation limited by low dose technique and lack of IV contrast. Patient has undergone sternotomy since the prior study and pericardial surgical clips are now visualized. Heart and great vessels: Atherosclerotic calcification brachiocephalic vessels aortic arch and descending thoracic aorta. Pericardial surgical clips with coronary artery stents and calcifications stable. Chest wall, lower neck, axillae: Evaluation also limited by same factors as described above. Bilateral dense breast tissue. Upper abdomen: Evaluation limited by low-dose technique. Included peritoneal cavity with no free air or fluid. Vascular calcifications in the left kidney are stable. Also atherosclerotic calcifications in the abdominal aorta. Adrenal glands not well seen. Osseous structures: Evaluation limited by low dose MIP technique. Minimal spondylosis in the thoracic spine. No lytic or blastic lesions. IMPRESSION: 1. Emphysematous changes in the parenchyma are stable. Increased scarring and atelectasis in the right lower lobe and in the left upper lobe since the prior study. Also fissural thickening. New 3 mm nodule in the lateral aspect of the superior segment of the subpleural right lower lobe. Other smaller nodules bilaterally are stable. [facility] Best Practice recommendations: Please see below for lung RADS category and FOLLOW-UP.* CATEGORY 2- Nodules with a very low likelihood (less than 1%) of becoming a clinically active cancer due to size or lack of growth. Nodules: Perifissural nodule(s) < 10 mm. (526mm3). Solid or part solid nodule(s) less than 6mm (113.1 mm3), new solid nodule less than 4mm (33.5 mm3). Ground glass nodule(s) less than 30mm (27956.2 mm3) or unchanged or slow growing ground glass nodule 30mm or greater. Cat 3 or 4 nodule unchanged for 3 or more months. FOLLOW-UP: Continue annual screening with a Low Dose Chest CT in 12 months for re-evaluation. . 2. Bilateral dense breast tissue. Most recent breast screening mammogram at this facility was in April 2016. Consider re-enrolling patient in mammographic breast screening program, if not a participant in the past 12 months. Electronically signed by: Fazal Lizama MD 11/14/2018 1:50 PM CDT
== END ==
LOC: CT 13:44
PROVIDERS: ATTEND Family Medicine
DX: Z87.891 Personal history of nicotine dependence (principal); J43.9 Emphysema, unspecified; R91.1 Solitary pulmonary nodule; J98.4 Other disorders of lung; J98.11 Atelectasis

== ENCOUNTER 2020-04-29 10:41 | Emergency (ER) | payer OTHER ==
[2020-04-29] MEDS ORDERED: SODIUM CHLORIDE 0.9% (FLUSH) 10 ML SYG IV PRN (10:48)
[2020-04-29] MEDS ORDERED: SODIUM CHLORIDE 0.9% 1000ML 1,000 ML IVS PRN (10:48)
[2020-04-29] MEDS ORDERED: HYDROcodone 5MG/APAP 325MG 1 EA TAB PO ONE (10:50)
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
[2020-04-29] MEDS ORDERED: HYDROcodone 5MG/APAP 325MG 1 EA TAB ONE (11:04)
[2020-04-29] MEDS ORDERED: SODIUM CHLORIDE 0.9% 1000ML 1,000 ML ONE (11:05)
[2020-04-29] MEDS ORDERED: SODIUM CHLORIDE 0.9% (FLUSH) 10 ML SYG ONE (11:09)
[2020-04-29] MEDS ORDERED: CHLORHEXIDINE GLUCONATE 4 % 15 ML UD TOP ONE (11:14)
[2020-04-29] MEDS ORDERED: NEOMYCIN-BACITRACIN-POLYMYXIN 0.9 GM UD TOP ONE (11:14)
[2020-04-29] MEDS ORDERED: ONDANSETRON ODT 8 MG TAB SL ONE (11:40)
[2020-04-29] MEDS ORDERED: ONDANSETRON ODT 8 MG TAB ONE (11:42)
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
[2020-04-29 12:31] VITALS: BP 233/101; TEMP 97.7; O2SAT 98
== END 2020-04-29 12:31 | disposition home or self-care (01) ==
LOC: ER 10:41
DX: S20.211A Contusion of right front wall of thorax, initial encounter (principal); R10.11 Right upper quadrant pain; S60.511A Abrasion of right hand, initial encounter; E11.9 Type 2 diabetes mellitus without complications; I10 Essential (primary) hypertension; F32.9 Major depressive disorder, single episode, unspecified; Z87.891 Personal history of nicotine dependence; Z79.4 Long term (current) use of insulin; Z79.899 Other long term (current) drug therapy; Z88.8 Allergy status to other drugs, medicaments and biological substances; V47.5XXA Car driver injured in collision with fixed or stationary object in traffic accident, initial encounter; Y92.410 Unspecified street and highway as the place of occurrence of the external cause
CPT/HCPCS: 36415; 71250; 74176; 80053; 80320; 85025; 85610; 85730; A4216; J7030